=== PATIENT | female | born 1960 | race Caucasian/White ===

== ENCOUNTER → 2017-11-25 12:47 | Outpatient (CLI) | payer OTHER, SELFPAY ==
--- NOTE | 2017-11-26 08:30 | LEAS ---
Arterial Study - Arterial Study Arterial Study: Date of scan 11/25/[address] Robertson Interpretation: Right lower extremity triphasic flow noted at the ankle with an MARK 1.05 the PT 1.0 the DP. Left lower extremity with triphasic flow the PT with an MARK 1.03 and biphasic flow at the DP with an MARK 0.92. Impression: 1. Bilateral lower extremities with triphasic flow noted at the ankle with an MARK 1.05 on the right 1.03 on the left
== END ==
PROVIDERS: Visit Provider Surgery Vascular Surgery
DX: I74.09 Other arterial embolism and thrombosis of abdominal aorta (principal); M79.604 Pain in right leg; R09.89 Other specified symptoms and signs involving the circulatory and respiratory systems; I70.213 Atherosclerosis of native arteries of extremities with intermittent claudication, bilateral legs; I74.9 Embolism and thrombosis of unspecified artery; M79.605 Pain in left leg; M19.90 Unspecified osteoarthritis, unspecified site; F17.200 Nicotine dependence, unspecified, uncomplicated
CPT/HCPCS: 93880; 93922

== ENCOUNTER → 2017-11-26 08:52 | Outpatient (CLI) | payer OTHER, SELFPAY | PROVIDERS: Visit Provider Surgery Vascular Surgery | DX: I74.09 Other arterial embolism and thrombosis of abdominal aorta (principal); M79.604 Pain in right leg; R09.89 Other specified symptoms and signs involving the circulatory and respiratory systems; I70.213 Atherosclerosis of native arteries of extremities with intermittent claudication, bilateral legs; I74.9 Embolism and thrombosis of unspecified artery; M79.605 Pain in left leg; M19.90 Unspecified osteoarthritis, unspecified site; F17.200 Nicotine dependence, unspecified, uncomplicated | CPT/HCPCS: 93978 ==

== ENCOUNTER → 2018-10-27 09:10 | Outpatient (CLI) | payer OTHER, SELFPAY ==
[2018-10-22 10:34] VITALS: BMI 27.8
[2018-10-27 10:20] LABS: AST(SGOT) 19 U/L (15-37); Alanine Aminotransfer ALT/SGPT 35 U/L (13-56); Albumin, Serum 3.8 g/dL (3.2-5.0); Alkaline Phosphatase 90 U/L (45-117); Bilirubin, Direct 0.13 mg/dL (0.00-0.30); Cholesterol 130 mg/dL (200); Globulin 3.5 g/dL (2.2-4.2); High Density Lipoprotein 51 mg/dL; Protein, Total 7.3 g/dL (6.4-8.2); Triglycerides 155 mg/dL; Very Low Density Lipoprotein 31 mg/dL (5-40)
== END ==
PROVIDERS: Referring Provider Internal Medicine Cardiovascular Disease; Visit Provider Internal Medicine Cardiovascular Disease
DX: I70.90 Unspecified atherosclerosis (principal); E78.5 Hyperlipidemia, unspecified
CPT/HCPCS: 36415; 80061; 80076

== ENCOUNTER → 2018-11-05 14:56 | Outpatient (CLI) | payer OTHER, SELFPAY ==
[2018-10-22 10:34] VITALS: BMI 27.8
--- NOTE | 2018-11-05 14:58 | ECHOD_ITS ---
Reason For Study: DYSPNEA Procedure This was a 2D Doppler, Color Flow transthoracic echocardiogram. Exam performed in department. Left Ventricle Normal size and thickness. The estimated ejection fraction is 65 %. Stage 1 diastolic dysfunction. No regional wall motion abnormalities noted. Right Ventricle Normal size and thickness. Normal systolic function. Atria Normal left atrium. Normal right atrium. Normal atrial septum. Mitral Valve The mitral valve is structurally normal. No prolapse or stenosis seen. Tricuspid Valve Normal tricuspid valve. Trivial tricuspid valve insufficiency. Right ventricular systolic pressure estimated to be 17 mmHg. Aortic Valve Normal aortic valve. Trisinus/trileaflet aortic valve. Pulmonic Valve Normal pulmonic valve. Trivial eccentric pulmonic valve insufficiency. Great Vessels Normal aortic root. Normal arch. Normal inferior vena cava. Inferior vena cava collapse with sniff. Pericardium/Pleural No pericardial effusion. MMode/2D Measurements & Calculations LVIDd: 4.4 cm IVSd: 0.96 cm Ao root diam: 2.6 cm LVIDs: 2.5 cm LVPWd: 0.92 cm FS: 43.3 % LAV(MOD-bp): 43.4 ml LA A4 area: 16.3 cm2 LA dimension(2D): 3.5 cm LAV(MOD-bp) Indexed: 25.6 ml/m2 LAV(MOD-sp2): 38.7 ml LAV(MOD-sp4): 42.2 ml RA A4 area: 11.8 cm2 Time Measurements MV dec time: 0.23 sec Doppler Measurements & Calculations MV E max rafa: 74.4 cm/sec Lat Peak E' Rafa: 7.5 cm/sec Med Peak E' Rafa: 6.3 cm/sec MV A max rafa: 89.5 cm/sec E/E' lat: 9.9 E/E' med: 11.9 MV E/A: 0.83 Ao V2 max: 125.2 cm/sec LV V1 max: 103.2 cm/sec PA V2 max: 106.0 cm/sec Ao max P.3 mmHg LV V1 max P.3 mmHg TR max rafa: 175.8 cm/sec TR max P.4 mmHg Interpretation Summary The estimated ejection fraction is 65 %. Stage 1 diastolic dysfunction. Trivial tricuspid valve insufficiency. Right ventricular systolic pressure estimated to be 17 mmHg. Compared to echo report dated 03/30/13, no appreciable changes noted. Ordering Physician: Dmitry Dixon Referring Physician: Dmitry Dixon Performed By: Eda Novak RDCS, RVT
== END ==
PROVIDERS: Referring Provider Internal Medicine Cardiovascular Disease; Visit Provider Internal Medicine Cardiovascular Disease
DX: I70.90 Unspecified atherosclerosis (principal); E78.5 Hyperlipidemia, unspecified; I73.9 Peripheral vascular disease, unspecified; I10 Essential (primary) hypertension; R06.00 Dyspnea, unspecified; R06.02 Shortness of breath
CPT/HCPCS: 93306

== ENCOUNTER → 2018-11-11 13:25 | Outpatient (CLI) | payer OTHER, SELFPAY ==
[2018-10-22 10:34] VITALS: BMI 27.8
--- NOTE | 2018-11-11 13:27 | STEWCON_ITS ---
Reason For Study: DYSPNEA/SOB Stress Results Protocol: Bong Protocol WITH DEFINITY Maximum Predicted HR: 162 bpm Target HR: 138 bpm % Maximum Predicted HR: 90 % DurationHeart Rate Stage (mm:ss) (bpm) BP Comment BASELINE 67 140/90 STAGE 1 3:00 115 182/80 STAGE 2 3:00 13 210/100 STAGE3 2:30 146 220/92 2 CC DEFINITY RECOVERY 88 142/92 Stress Duration: 8:30 mm:ss Maximum Stress HR: 146 bpm Baseline Echocardiogram Findings The estimated ejection fraction is 65 %. Stress Echo Wall motion Data Resting WM Intermediate WM Stress WM Resting Wall Motion Wall Motion Stress No regional wall motion No regional wall motion abnormalities noted. abnormalities noted. EKG Data The baseline ECG displays normal sinus rhythm. The patient exercised according to the regular Bong protocol for a total duration of 8:30. The maximum heart rate attained was 151 beats per minute. This was 93% of maximum predicted heart rate. The patient exercised into stage 3 of the Bong protocol. During stress, there were no ST or T wave changes noted to suggest ischemia. No clinical angina was noted. Interpretation Summary The estimated ejection fraction is 65 %. Normal, adequate, treadmill echocardiogram. Negative for ischemia by EKG and echocardiographic criteria. No anginal symptoms noted. Rare PVCs noted. Hypertensive blood pressure response to exercise. Test terminated due to dyspnea. Decreased sensitivity due to poor echo windows requiring Definity agent. Final LVEF is 75%. No complications. The study was technically difficult. Contrast injection was performed. Ordering Physician: Dmitry Dixon Referring Physician: Dmitry Dixon Performed By: Nichol Maravilla, DEL, RVT
== END ==
PROVIDERS: Referring Provider Internal Medicine Cardiovascular Disease; Visit Provider Internal Medicine Cardiovascular Disease
DX: I70.90 Unspecified atherosclerosis (principal); R09.89 Other specified symptoms and signs involving the circulatory and respiratory systems; E78.5 Hyperlipidemia, unspecified; I10 Essential (primary) hypertension; R06.09 Other forms of dyspnea; R06.02 Shortness of breath
CPT/HCPCS: 93017; 93350; Q9957; A4216; C8928

== ENCOUNTER → 2019-01-20 07:58 | Outpatient (CLI) | payer OTHER, SELFPAY ==
[2018-10-22 10:34] VITALS: BMI 27.8
--- NOTE | 2019-01-20 08:00 | ART_ITS ---
Reason For Study: Atherosclerosis Procedure A bilateral lower extremity continuous wave Doppler with analog waveform analysis and ankle brachial indexes. Left Segmental Pressures Left brachial= 160mmHg. Left posterior tibial artery = 195mmHg. Left dorsalis pedis artery = 186mmHg. The left posterior tibial artery waveforms are triphasic. The left dorsalis pedis waveforms are biphasic. Right Segmental Pressures Right brachial= 171mmHg. Right posterior tibial artery = 173mmHg. Right dorsalis pedis artery = 196mmHg. The right posterior tibial artery waveforms are biphasic. The right dorsalis pedis waveforms are biphasic. Indices The right ankle brachial index by the posterior tibial artery is 1.01. The right ankle brachial index by the dorsalis pedis is 1.15. The left ankle brachial index by the posterior tibial artery is 1.14. The left ankle brachial index by the dorsalis pedis is 1.09. Interpretation Summary 1. Bilaterl no significant occlussive disease at rest with MARK 1.15/1.14. Ordering Physician: Benjy Robertson Referring Physician: Benjy Robertson Performed By: Gabriella Fulton RDCS/RVT
--- NOTE | 2019-01-20 08:00 | CDU_ITS ---
Reason For Study: Bruit Rt. Velocities/BP Lt. Velocities/BP Prox CCA 90/30 cm/sec. Prox CCA 83/29 cm/sec. Mid CCA 93/33 cm/sec. Mid CCA 91/29 cm/sec. Dist CCA 81/24 cm/sec. Dist CCA 73/24 cm/sec. Prox ICA 100/33 cm/sec. Prox ICA 63/27 cm/sec. Mid ICA 145/44 cm/sec. Mid ICA 90/35 cm/sec. Dist ICA 149/52 cm/sec. Dist ICA 118/47 cm/sec. Rt. ICA/CCA = 1.6. Lt. ICA/CCA = 1.3. Prox ECA 109/20 cm/sec. Prox ECA 70/11 cm/sec. Rt. Vert. 47/16 cm/sec. Lt. Vert. 60/22 cm/sec. Right Extracranial There is heterogeneous, irregular atherosclerotic plaque noted in the right common carotid artery. There is heterogeneous, irregular atherosclerotic plaque noted in the right internal carotid artery. There is intimal thickening but no significant atherosclerotic plaque noted in the right external carotid artery. Antegrade flow is noted in the right vertebral artery. Left Extracranial There is intimal thickening but no significant atherosclerotic plaque noted in the left common carotid artery. There is heterogeneous, irregular atherosclerotic plaque noted in the left internal carotid artery. There is heterogeneous, irregular atherosclerotic plaque noted in the left external carotid artery. Antegrade flow is noted in the left vertebral artery. Procedure Carotid Duplex [id number]. Exam performed in department. Interpretation Summary Moderate (50-69%) stenosis right extracranial internal carotid. Mild (<50%) stenosis left extracranial internal carotid. Flow within the vertebral arteries is antegrade bilaterally. Ordering Physician: Benjy Robertson Referring Physician: Benjy Robertson Performed By: Gabriella Fulton, DEL, RVT
--- NOTE | 2019-01-20 08:00 | AAVD_ITS ---
Reason For Study: Atherosclerosis Aorta Measurements Aorta Doppler Measurements Proximal aorta measures2.01cm x 2.05cm. in cross- Peak systolic flow velocities within the proximal sectional axis. aorta measure 54 cm/sec. Proximal aorta measures1.98cm. in longitudinal Peak systolic flow velocities within the mid aorta axis. measure 59 cm/sec. Mid aorta measures1.42cm x 1.46cm. in cross- Peak systolic flow velocities within the distal sectional axis. aorta measure 118 cm/sec. Mid aorta measures1.38cm. in longitudinal axis. Aorta prox stent: 89 cm/s Distal aorta measures1.11cm x 1.17cm. in cross- Aorta mid stent: 93 cm/s sectional axis. Aorta distal stent: 118 cm/s. Distal aorta measures1.04cm. in longitudinal axis. Left Iliac Artery Left iliac artery measures 0.71cm x 0.76 cm. in the cross-sectional axis. Left iliac artery measures 0.64 cm. in the longitudinal axis. Peak systolic velocity in the left iliac artery measures 223 cm/sec. Right Iliac Artery Right iliac artery measures 0.73cm x 0.71 cm. in the cross-sectional axis. Right iliac artery measures 0.68 cm. in the longitudinal axis. Peak systolic velocity in the right iliac artery measures 174 cm/sec. Procedure Aorta IVC Iliac vasculature or bypass grafts [id number]. Exam performed in department. Interpretation Summary 1. Aortoiliac with no significant stenosis. Ordering Physician: Benjy Robertson Referring Physician: Benjy Robertson Performed By: Gabriella Fulton RDCS, RVT
== END ==
PROVIDERS: Referring Provider Surgery Vascular Surgery; Visit Provider Surgery Vascular Surgery
DX: I74.09 Other arterial embolism and thrombosis of abdominal aorta (principal); M79.604 Pain in right leg; R09.89 Other specified symptoms and signs involving the circulatory and respiratory systems; I70.213 Atherosclerosis of native arteries of extremities with intermittent claudication, bilateral legs; I74.9 Embolism and thrombosis of unspecified artery; M79.605 Pain in left leg; M19.90 Unspecified osteoarthritis, unspecified site; Z87.891 Personal history of nicotine dependence
CPT/HCPCS: 93880; 93922; 93978

== ENCOUNTER → 2019-11-25 08:46 | Outpatient (CLI) | payer OTHER, SELFPAY ==
[2019-11-23 09:19] VITALS: BMI 27.2
[2019-11-25 09:40] LABS: AST(SGOT) 17 U/L (15-37); Alanine Aminotransfer ALT/SGPT 32 U/L (13-56); Alkaline Phosphatase 88 U/L (45-117); Bilirubin, Direct 0.17 mg/dL (0.00-0.30); Cholesterol 137 mg/dL (200); Globulin 3.3 g/dL (2.2-4.2); High Density Lipoprotein 62 mg/dL; Protein, Total 7.3 g/dL (6.4-8.2); Triglycerides 68 mg/dL; Very Low Density Lipoprotein 14 mg/dL (5-40)
== END ==
PROVIDERS: Referring Provider Internal Medicine Cardiovascular Disease; Visit Provider Internal Medicine Cardiovascular Disease
DX: E78.5 Hyperlipidemia, unspecified (principal); I70.90 Unspecified atherosclerosis
CPT/HCPCS: 36415; 80061; 80076

== ENCOUNTER → 2020-02-16 08:01 | Outpatient (CLI) | payer OTHER, SELFPAY ==
[2019-11-23 09:19] VITALS: BMI 27.2
--- NOTE | 2020-02-16 08:03 | CDU_ITS ---
Reason For Study: Carotid stenosis Rt. Velocities/BP Lt. Velocities/BP Prox CCA 91.7/23.9 cm/sec. Prox CCA 91.5/26.7 cm/sec. Mid CCA 91.7/29.1 cm/sec. Mid CCA 88.2/28.9 cm/sec. Dist CCA 71.7/22.3 cm/sec. Dist CCA 81.6/28.9 cm/sec. Prox ICA 94.8/30 cm/sec. Prox ICA 77.2/23.4 cm/sec. Mid ICA 137.5/42.6 cm/sec. Mid ICA 79/29.8 cm/sec. Dist ICA 117.4/33.4 cm/sec. Dist ICA 128.4/37.1 cm/sec. Rt. ICA/CCA = 1.5. Lt. ICA/CCA = 1.5. Prox ECA 91.5/17.9 cm/sec. Prox ECA 82.8/14.6 cm/sec. Rt. Vert. 34.3/10.7 cm/sec. Lt. Vert. 55.3/16.8 cm/sec. Right Extracranial There is homogeneous, smooth atherosclerotic plaque noted in the right common carotid artery. There is heterogeneous, irregular atherosclerotic plaque noted in the right internal carotid artery. There is homogeneous, smooth atherosclerotic plaque noted in the right external carotid artery. Antegrade flow is noted in the right vertebral artery. Left Extracranial There is homogeneous, smooth atherosclerotic plaque noted in the left common carotid artery. There is heterogeneous, irregular atherosclerotic plaque noted in the left internal carotid artery. There is intimal thickening but no significant atherosclerotic plaque noted in the left external carotid artery. Antegrade flow is noted in the left vertebral artery. Procedure Carotid Duplex [id number]. This is a Carotid Duplex examination using B-mode, color flow and specral Doppler. Exam performed in department. Interpretation Summary Moderate (50-69%) stenosis right extracranial internal carotid. Mild (<50%) stenosis left extracranial internal carotid. Flow within the vertebral arteries is antegrade bilaterally. Ordering Physician: Benjy Robertson Performed By: Roberta Hankins RVT
--- NOTE | 2020-02-16 08:03 | AAVD_ITS ---
Reason For Study: Atherosclerosis Aorta Measurements Aorta Doppler Measurements Proximal aorta measures1.35 x 1.32cm. in cross- Peak systolic flow velocities within the proximal sectional axis. aorta measure 74.4 cm/sec. Proximal aorta measures1.31cm. in longitudinal Peak systolic flow velocities within the mid aorta axis. measure 103.4 cm/sec. Mid aorta measures1.05 x 1.02cm. in cross- Peak systolic flow velocities within the distal sectional axis. aorta measure 180.4 cm/sec. Mid aorta measures1.02cm. in longitudinal axis. Stent noted throughout the mid-distal aorta. Distal aorta measures0.98 x 0.98cm. in cross- sectional axis. Distal aorta measures0.98cm. in longitudinal axis. Left Iliac Artery Left iliac artery measures 0.44 x 0.45 cm. in the cross-sectional axis. Left iliac artery measures 0.59 cm. in the longitudinal axis. Peak systolic velocity in the left iliac artery measures 185.6 cm/sec. Stent noted in left iliac artery. Right Iliac Artery Right iliac artery measures 0.58 x 0.55 cm. in the cross-sectional axis. Right iliac artery measures 0.56 cm. in the longitudinal axis. Peak systolic velocity in the right iliac artery measures 198.5 cm/sec. Stent noted in right iliac artery. Procedure Aorta IVC Iliac vasculature or bypass grafts [id number]. Exam performed in department. Interpretation Summary No significant aortoiliac occlussive disease. Ordering Physician: Benjy Robertson Performed By: Roberta Hankins RVT
--- NOTE | 2020-02-16 08:03 | ART_ITS ---
Reason For Study: Atherosclerosis Procedure A bilateral lower extremity continuous wave Doppler with analog waveform analysis and ankle brachial indexes. Left Segmental Pressures Left brachial= 158mmHg. Left posterior tibial artery = 144mmHg. Left dorsalis pedis artery = 132mmHg. Left digit = 120 mmHg. The left dorsalis pedis waveforms are triphasic. The left posterior tibial artery waveforms are triphasic. Right Segmental Pressures Right brachial= 151mmHg. Right posterior tibial artery = 168mmHg. Right dorsalis pedis artery = 154mmHg. Right digit = 109 mmHg. The right dorsalis pedis waveforms are triphasic. The right posterior tibial artery waveforms are biphasic. Indices The right ankle brachial index by the dorsalis pedis is 0.97. The right ankle brachial index by the posterior tibial artery is 1.06. The right digital-brachial index is 0.69. The left ankle brachial index by the dorsalis pedis is 0.84. The left ankle brachial index by the posterior tibial artery is 0.91. The left digital-brachial index is 0.76. Interpretation Summary No significant occlussive disease at rest with bilateral triphasic flow and MARK 1.06 and 0.91. Ordering Physician: Benjy Robertson Performed By: Roberta Hankins RVT
== END ==
PROVIDERS: Referring Provider Surgery Vascular Surgery; Visit Provider Surgery Vascular Surgery
DX: I65.23 Occlusion and stenosis of bilateral carotid arteries (principal); I70.213 Atherosclerosis of native arteries of extremities with intermittent claudication, bilateral legs; I74.9 Embolism and thrombosis of unspecified artery; I74.09 Other arterial embolism and thrombosis of abdominal aorta; F17.200 Nicotine dependence, unspecified, uncomplicated
CPT/HCPCS: 93880; 93922; 93978

== ENCOUNTER → 2020-05-23 15:29 | Outpatient (CLI) | payer OTHER, SELFPAY ==
[2020-05-23 14:40] VITALS: BMI 27.1
[2020-05-23 16:22] LABS: Absolute Lymphocyte Count 2.03 X10^3/uL (0.83-4.51); Basophil# 0.02 X10^3/uL; Basophil% 0.3 % (0-1); Eosinophil# 0.22 X10^3/uL; Eosinophils% 3.3 % (0-5); Hematocrit 43.7 % (37-47); Hemoglobin 13.5 g/dL (12.0-15.0); Lymphocyte # 2.03 X10^3/ul (4.0); Lymphocyte % 30.1 % (19-41); Mean Corp Hgb Conc 30.9 g/dL (32-36); Mean Corpuscular Hgb 30.3 pg (27.0-32.0); Mean Platelet Vol. 10.1 fl (6.2-12.0); Monocyte# 0.43 X10^3/uL; Monocyte% 6.4 % (0-10); NRBC Flagged by Analyzer 0 % (0-5); Neutrophil # 4.03 X10^3/uL (2.7-7.7); Neutrophil % 59.8 % (47-70); Platelet Count 258 K/mm3 (150-450); RBC Distribution Width CV 11.8 % (11.6-14.6); RBC Distribution Width SD 42.8 fl (35.1-43.9); Red Blood Count 4.46 M/mm3 (4.2-5.4); White Blood Count 6.7 K/mm3 (4.4-11.0)
[2020-05-23 16:51] LABS: AST(SGOT) 14 U/L (15-37); Alanine Aminotransfer ALT/SGPT 27 U/L (13-56); Alkaline Phosphatase 93 U/L (45-117); Anion Gap 7 (5-15); BUN 15 mg/dL (7-18); Calcium,Total 8.8 mg/dL (8.5-10.1); Chloride 106 mmol/L (98-107); Creatinine, Serum 0.83 mg/dL (0.55-1.02); EST Glomerular Filtration Rate 74 mL/min (>60); Est Glom Filt Rate - Afr Amer 90 mL/min (>60); Globulin 3.4 g/dL (2.2-4.2); Glucose 86 mg/dL (74-106); Potassium 3.9 mmol/L (3.5-5.1); Protein, Total 7.4 g/dL (6.4-8.2); Sodium Level 141 mmol/L (136-145)
== END ==
PROVIDERS: Referring Provider Physician Assistant Medical; Visit Provider Physician Assistant Medical
DX: E78.00 Pure hypercholesterolemia, unspecified (principal); E78.5 Hyperlipidemia, unspecified; I10 Essential (primary) hypertension; I73.9 Peripheral vascular disease, unspecified
CPT/HCPCS: 36415; 80048; 80076; 85025

== ENCOUNTER 2020-09-19 08:11 | Emergency (ER) | payer OTHER, SELFPAY ==
[2020-05-23 14:40] VITALS: BMI 27.1
[2020-09-19 08:12] VITALS: PULSE 88; RESP 16; TEMP 36.4; O2SAT 95; BMI 25.6
--- NOTE | 2020-09-19 08:17 | EX.ED.GENINJ ---
HPI History of Present Illness Chief Complaint: Laceration Informant: patient Onset/Context/Timing Onset: Today Mechanism/Context: Incised Location of pain/injuries: Left hand (Left index finger) Quality of Pain: Sharp Current Severity: Mild Maximum Severity: Mild Associated Symptoms Associated Symptoms: Negative for Parasthesias, Weakness and Loss of function Narrative Narrative: Patient is a 60-year-old female medical history significant for hyperlipidemia and peripheral vascular disease who presents to the emergency department with finger laceration. 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 She states she did not have her gloves on. She accidentally incised the lateral aspect of the left second digit near the PIP joint. She is stable to move it. She denies any numbness or tingling. Her tetanus was 3 years ago. She is otherwise been in her normal state of health. The patient is right-hand dominant. Tetanus Immunization: <5 years PFSH PFSH Medical History Arterial occlusive disease Carotid bruit Diastolic dysfunction Hyperlipidemia Hypertension Osteoarthritis Peripheral vascular disease Home Medications aspirin 81 mg PO QODAY 07/11/16 [History Last Taken Unknown] clopidogrel 75 mg tablet 75 mg PO DAILY #90 tab 05/18/18 [Rx Last Taken Unknown] simvastatin 40 mg tablet 40 mg PO QHS #90 tab 02/18/20 [Rx Last Taken Unknown] losartan 25 mg tablet 25 mg PO BID #180 tab 07/03/20 [Rx Last Taken Unknown] Allergy/AdvReac Type Severity Reaction Status Date / Time bacitracin Allergy Rash Verified 09/19/20 08:11 latex Allergy Unknown Verified 09/19/20 08:11 Penicillins Allergy Unknown Verified 09/19/20 08:11 FIBER GLASS Allergy Unknown Uncoded 09/19/20 08:11 Family History Grandfather Myocardial infarction Uncle Myocardial infarction, Onset Age: 55 Surgical History Hx of carpal tunnel repair Hx of hemorrhoidectomy S/P insertion of iliac artery stent (~05/17/13) Social History Smoking Status: Former smoker ROS ROS ED Constitutional Constitutional ED: Denies chills or fever(s) Eyes Eyes: Denies blurry vision or change in vision ENT ENT ED: Denies ear pain or sore throat Cardiovascular Cardiovascular: Denies chest pain or palpitations Respiratory/Chest Respiratory/Chest: Denies cough, dyspnea or dyspnea on exertion Gastrointestinal Gastrointestinal: Denies abdominal pain, nausea or vomiting Genitourinary Genitourinary ED: Denies dysuria or urinary frequency Musculoskeletal Musculoskeletal: Denies arthralgias or myalgias Integumentary Denies rash Neurologic Neurologic: Denies headache(s) or paresthesias Psychiatric Psychiatric: Denies anxiety or depression Endocrine Endocrinology: Denies polydipsia or polyuria Allergic/Immunologic Allergic/Immunologic ED: Denies urticaria EXAM Physical Exam Const Vital Signs: 09/19/20 08:12 Temperature 97.6 F L Temperature Source Temporal Pulse Rate 88 Respiratory Rate 16 Pulse Ox 95 Oxygen Delivery Method Room Air Positive well nourished and well developed General Appearance ED: well developed HEENT Reports normocephalic, head/scalp atraumatic and moist mucous membranes atraumatic; Negative for tenderness Eyes PERRL and EOMs intact bilaterally Neck no lymphadenopathy and supple General: Negative for tenderness Chest Wall inspection of chest normal Resp normal respiratory effort and clear to auscultation bilaterally Cardio regular rate, regular rhythm and no murmurs GI normal to inspection, nondistended, normoactive bowel sounds Palpation: Negative for tender, guarding or rebound tenderness present Back/Spine no CVA tenderness Cervical Spine: Negative for cervical spine tenderness Thoracic Spine / Upper Back: Negative for thoracic spinal tenderness Extremity Extremity Narrative: Patient has a 3 cm laceration near the PIP on the left index. It is just distal. Two-point discrimination is preserved. Flexion and extension are preserved. Minimal active bleeding. General Extremety ED: Yes tenderness Neuro oriented x3 and CN's II-XII intact bilaterally Neuro Narrative: No focal deficits appreciated. Sensorium / Orientation: alert Psych mental status grossly normal Skin no rashes or lesions noted, no wounds and skin turgor normal MDM MDM MDM Narrative Medical decision making narrative: Patient presents laceration to the left index finger. It is just distal to the PIP joint. The wound was aggressively irrigated. It was anesthetized with 3 cc of 1% lidocaine without epinephrine. The wound was explored. There was no evidence of tendinous involvement. Flexor profundus and flexor superficialis are intact. Two-point discrimination was preserved. The wound was closed using 7 simple 6-0 interrupted suture. Patient tolerated this without issue. I am going to place her in [facility] splint for the next 2 days. She was counseled on local wound care. She will follow-up with corporate care will be discharged home. Impression 1. 3 cm left index finger laceration with repair Discharge Plan Triage Chief Complaint: Laceration ED Provider: Tl Benavidez Dx/Rx/DC Orders Instructions: ED Laceration, Hand: All Closures Prescriptions: No Action aspirin 81 MG tablet,chewable 81 mg PO QODAY RF: 0 clopidogrel 75 mg tablet 75 mg PO DAILY Qty: 90 RF: 3 simvastatin 40 mg tablet 40 mg PO QHS Qty: 90 RF: 3 losartan [Cozaar] 25 mg tablet 25 mg PO BID Qty: 180 RF: 3 Primary Care Provider: Care Physician,No Primary Referrals: Corporate,Care [GROUP OF PHYSICIANS] - 10 Day for suture removal Care Physician,No Primary [Primary Care Provider] -
--- NOTE | 2020-09-19 08:29 | ED.RN ---
CALLED [facility] IN [place]. 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
[2020-09-19] MEDS: Lidocaine 1% (20 ml mdv) 20 ML Vial INFILT (08:41)
== END 2020-09-19 09:34 | disposition home or self-care (01) ==
LOC: ED 08:31
PROVIDERS: Emergency Provider Emergency Medicine
DX: S61.211A Laceration without foreign body of left index finger without damage to nail, initial encounter (principal); S69.92XA Unspecified injury of left wrist, hand and finger(s), initial encounter; W27.8XXA Contact with other nonpowered hand tool, initial encounter; Y92.89 Other specified places as the place of occurrence of the external cause; Y99.0 Civilian activity done for income or pay; I73.9 Peripheral vascular disease, unspecified; E78.5 Hyperlipidemia, unspecified; I10 Essential (primary) hypertension; Z87.891 Personal history of nicotine dependence; Z79.82 Long term (current) use of aspirin
CPT/HCPCS: 12002; 99284

== ENCOUNTER 2020-10-30 05:28 | Emergency (ER) | payer OTHER, SELFPAY ==
[2020-10-13 08:50] VITALS: BMI 26.3
[2020-10-30 05:28] VITALS: BP 142/80; PULSE 101; RESP 18; TEMP 36.6; O2SAT 97; BMI 26.5
--- NOTE | 2020-10-30 06:04 | ED.VIS.DENTA ---
HPI History of Present Illness Chief Complaint: Dental Informant: patient Onset/Context/Timing Onset: Weeks (1) Context: Gradual Onset Timing: Continuous Quality: Dull, aching, swollen Location: Right upper molars Worsened by: Nothing Relieved by: NSAIDs (Aspirin) Associated Symptoms Assocated Symptom - Dental: face swelling; Negative for fever, cold sensitivity or hot sensitivity Narrative Narrative: Patient presents with dental pain that has been getting worse over the past week. Patient states the pain is over the right upper molar area. Patient states she has been on antibiotics but these have not been helping. Patient denies any fevers or chills. Patient denies any discharge or drainage. Patient denies any difficulty breathing or difficulty swallowing. Patient states she has an appoint with her dentist but is unable to get in there until her swelling improves. PFSH PFSH Medical History Carotid bruit Essential hypertension Hyperlipidemia Laceration of left index finger Osteoarthritis Paresthesia Peripheral vascular occlusive disease Home Medications clopidogrel 75 mg tablet 75 mg PO DAILY #90 tab 05/18/18 [Rx Last Taken Unknown] simvastatin 40 mg tablet 40 mg PO QHS #90 tab 02/18/20 [Rx Last Taken Unknown] aspirin 81 mg chewable tablet 81 mg PO DAILY tab 10/13/20 [History Last Taken Unknown] losartan 50 mg tablet 50 mg PO DAILY #90 tab 10/13/20 [Rx Last Taken Unknown] clindamycin HCl 300 mg PO Q6H 10/30/20 [History Last Taken Unknown] Allergy/AdvReac Type Severity Reaction Status Date / Time bacitracin Allergy Rash Verified 10/30/20 05:32 latex Allergy Unknown Verified 10/30/20 05:32 Penicillins Allergy Unknown Verified 10/30/20 05:32 FIBER GLASS Allergy Unknown Uncoded 10/30/20 05:32 Family History Grandfather Myocardial infarction Uncle Myocardial infarction, Onset Age: 55 Surgical History History of angioplasty of peripheral vessel (05/17/13) Hx of carpal tunnel repair Hx of hemorrhoidectomy Social History Smoking Status: Former smoker ROS ROS ED Constitutional Constitutional ED: Denies chills or fever(s) Eyes Eyes: Denies blurry vision or change in vision ENT ENT ED: Denies rhinorrhea or sore throat Cardiovascular Cardiovascular: Denies chest pain or palpitations Respiratory/Chest Respiratory/Chest: Reports cough; Denies dyspnea Gastrointestinal Gastrointestinal: Reports nausea and vomiting Genitourinary Genitourinary ED: Denies dysuria or hematuria Musculoskeletal Musculoskeletal: Denies back pain or neck pain Integumentary Denies abscess or rash Neurologic Neurologic: Reports headache(s); Denies weakness Allergic/Immunologic Allergic/Immunologic ED: Denies mouth swelling or urticaria EXAM Physical Exam Const Vital Signs: 10/30/20 05:28 Temperature 97.8 F Temperature Source Temporal Pulse Rate 101 H Respiratory Rate 18 Blood Pressure 142/80 H Blood Pressure Mean 100 Pulse Ox 97 Oxygen Delivery Method Room Air Positive well nourished HEENT Mouth ED: Yes oral and palatal mucosa abnormal Mouth: oral and palatal mucosa abnormal Teeth and Gingiva: abnormal tooth and associated gingiva Positive for tenderness, associated gingival edema and associated gingival fluctuance Throat: posterior oropharynx normal Neck no lymphadenopathy, supple and no JVD General: Negative for anterior neck swelling or submandibular swelling Neuro oriented x3, CN's II-XII intact bilaterally, moves all extremities, no focal motor deficits and no sensory deficits noted Sensorium / Orientation: alert Psych mental status grossly normal MDM MDM MDM Narrative Medical decision making narrative: Topical lidocaine was applied to the gingiva. The tender fluctuant area was aspirated and a moderate amount of purulent drainage was expressed. A #15 blade scalpel was then used to make a small incision. There is moderate amount of purulent drainage expressed after this. Patient feels better after this. Patient was instructed to do salt water rinses. Patient was instructed to continue her antibiotics until gone. Patient was instructed to follow-up with her dentist as scheduled. Patient also requested to have COVID-19 vaccine. Patient was advised of the side effects. Patient is agreeable with this. Patient was given a single dose Gene & Gene COVID-19 vaccine. Patient understood and was agreeable with the plan. All questions were answered. Discharge Plan Triage Chief Complaint: Dental ED Provider: Jovani Mayorga Dx/Rx/DC Orders Clinical Impression: Abscess, dental Instructions: ED Dental Abscess Prescriptions: No Action losartan 50 mg tablet 50 mg PO DAILY Qty: 90 RF: 3 aspirin 81 mg tablet,chewable 81 mg PO DAILY RF: 0 clindamycin HCl 300 mg Capsule 300 mg PO Q6H RF: 0 clopidogrel 75 mg tablet 75 mg PO DAILY Qty: 90 RF: 3 simvastatin 40 mg tablet 40 mg PO QHS Qty: 90 RF: 3 Primary Care Provider: Care Physician,No Primary Referrals: Care Physician,No Primary [Primary Care Provider] - Dentist,Your [STAFF PHYSICIAN] - Keep Roxie appointment Disposition Disposition: Home, Self Care
[2020-10-30] MEDS: Lidocaine 2% Jelly 1 APPLIC Tube TOPICAL (06:27)
[2020-10-30] MEDS: COVID-19 VAC,AD26(JANSSEN)/PF 0.5 ML SYRINGE IM (08:43)
[2020-10-30 08:47] VITALS: BP 124/78; PULSE 84; RESP 16; O2SAT 97
== END 2020-10-30 09:11 | disposition home or self-care (01) ==
PROVIDERS: Emergency Provider Emergency Medicine
DX: K04.7 Periapical abscess without sinus (principal); Z23 Encounter for immunization; I10 Essential (primary) hypertension; E78.5 Hyperlipidemia, unspecified; Z87.891 Personal history of nicotine dependence; Z79.82 Long term (current) use of aspirin
CPT/HCPCS: 41800; 64999; 91303; 96372; 99282

== ENCOUNTER → 2020-11-18 08:52 | Outpatient (CLI) | payer OTHER, SELFPAY ==
[2020-11-18 10:05] LABS: AST(SGOT) 13 U/L (15-37); Alanine Aminotransfer ALT/SGPT 24 U/L (13-56); Albumin, Serum 3.7 g/dL (3.2-5.0); Alkaline Phosphatase 81 U/L (45-117); Bilirubin, Direct 0.17 mg/dL (0.00-0.30); Cholesterol 134 mg/dL (200); Globulin 3.1 g/dL (2.2-4.2); High Density Lipoprotein 73 mg/dL; Protein, Total 6.8 g/dL (6.4-8.2); Triglycerides 32 mg/dL; Very Low Density Lipoprotein 6 mg/dL (5-40)
== END ==
PROVIDERS: Referring Provider Internal Medicine Cardiovascular Disease; Visit Provider Internal Medicine Cardiovascular Disease
DX: E78.00 Pure hypercholesterolemia, unspecified (principal)
CPT/HCPCS: 36415; 80061; 80076

== ENCOUNTER → 2021-01-03 17:22 | Outpatient (CLI) | payer OTHER, SELFPAY ==
[2021-01-03 17:42] LABS: Absolute Neutrophil Count 3.7 X10^3/uL (2.0-7.7); Basophil# 0.02 X10^3/uL; Basophil% 0.3 % (0-1); Eosinophil# 0.19 X10^3/uL; Hematocrit 41.4 % (37-47); Hemoglobin 13.1 g/dL (12.0-15.0); Lymphocyte % 31.1 % (19-41); Mean Corp Hgb Conc 31.6 g/dL (32-36); Mean Corpuscular Hgb 30.5 pg (27.0-32.0); Mean Corpuscular Volume 96.3 fL (81-99); Mean Platelet Vol. 9.6 fl (6.2-12.0); Monocyte# 0.47 X10^3/uL; Monocyte% 7.3 % (0-10); NRBC Flagged by Analyzer 0 % (0-5); Neutrophil # 3.73 X10^3/uL (2.7-7.7); Neutrophil % 57.8 % (47-70); Platelet Count 253 K/mm3 (150-450); RBC Distribution Width CV 11.7 % (11.6-14.6); RBC Distribution Width SD 41.2 fl (35.1-43.9); White Blood Count 6.4 K/mm3 (4.4-11.0)
[2021-01-03 18:53] LABS: ALB/GLOB Ratio 1.1 RATIO (0.9-2.4); AST(SGOT) 18 U/L (15-37); Alanine Aminotransfer ALT/SGPT 29 U/L (13-56); Albumin, Serum 3.9 g/dL (3.2-5.0); Alkaline Phosphatase 83 U/L (45-117); Anion Gap 6 (5-15); BUN 16 mg/dL (7-18); BUN/Creat Ratio 19.7 RATIO (10-20); Calcium,Total 8.9 mg/dL (8.5-10.1); Chloride 108 mmol/L (98-107); Creatinine, Serum 0.81 mg/dL (0.55-1.02); EST Glomerular Filtration Rate 76 mL/min (>60); Est Glom Filt Rate - Afr Amer 92 mL/min (>60); Globulin 3.6 g/dL (2.2-4.2); Glucose 90 mg/dL (74-106); Potassium 3.7 mmol/L (3.5-5.1); Protein, Total 7.5 g/dL (6.4-8.2); Sodium Level 141 mmol/L (136-145); Thyroid Stim Hormone (TSH) 4.06 uIU/mL (0.358-3.74)
[2021-01-04 09:28] LABS: Hepatitis C Antibody Non-Reactive (Nonreactive); Vitamin D,25 Hydroxy 23.2 ng/mL
== END ==
PROVIDERS: PCP Family Medicine Geriatric Medicine; Referring Provider Family Medicine Geriatric Medicine; Visit Provider Family Medicine Geriatric Medicine
DX: R53.83 Other fatigue (principal); E55.9 Vitamin D deficiency, unspecified; Z13.89 Encounter for screening for other disorder
CPT/HCPCS: 36415; 80053; 82306; 84443; 85025; 86803

== ENCOUNTER → 2021-03-02 08:57 | Outpatient (CLI) | payer OTHER, SELFPAY ==
--- NOTE | 2021-03-02 09:00 | ART_ITS ---
Reason For Study: Atherosclerosis Procedure A bilateral lower extremity continuous wave Doppler with analog waveform analysis and ankle brachial indexes. Left Segmental Pressures Left brachial= 142mmHg. Left posterior tibial artery = 158mmHg. Left dorsalis pedis artery = 156mmHg. Left digit = 117 mmHg. Right Segmental Pressures Right brachial= 147mmHg. Right posterior tibial artery = 155mmHg. Right dorsalis pedis artery = 159mmHg. Right digit = 127 mmHg. Indices The right ankle brachial index by the posterior tibial artery is 1.05. The right ankle brachial index by the dorsalis pedis is 1.08. The right digital-brachial index is 0.86. The left ankle brachial index by the posterior tibial artery is 1.07. The left ankle brachial index by the dorsalis pedis is 1.06. The left digital-brachial index is 0.80. VL/Ankle Brachial Index Interpretation Summary Right lower extremity with biphasic flow noted but a normal MARK of 1.08. Left l eg with triphasic flow and an MARK 1.07. Normal digit brachial index of 0.86 and 0.8. Ordering Physician: Benjy Robertson Referring Physician: Benjy Robertson Performed By: Gabriella Fulton RDCS/RVT
--- NOTE | 2021-03-02 09:00 | AAVD_ITS ---
Reason For Study: Atherosclerosis Aorta Measurements Aorta Doppler Measurements Proximal aorta measures1.71cm x 1.95cm. in cross- Peak systolic flow velocities within the proximal sectional axis. aorta measure 46 cm/sec. Proximal aorta measures1.81cm. in longitudinal Peak systolic flow velocities within the mid aorta axis. measure 79 cm/sec. Mid aorta measures1.17cm x 1.17cm. in cross- Peak systolic flow velocities within the distal sectional axis. aorta measure 147 cm/sec. Mid aorta measures1.12cm. in longitudinal axis. Distal aorta measures1.10cm x 1.10cm. in cross- sectional axis. Distal aorta measures0.97cm. in longitudinal axis. Stent noted mid-distal Aorta. Left Iliac Artery Left iliac artery measures 0.66cm x 0.70 cm. in the cross-sectional axis. Left iliac artery measures 0.67 cm. in the longitudinal axis. Peak systolic velocity in the left iliac artery measures 203 cm/sec. Stent noted LCIA. Right Iliac Artery Right iliac artery measures 0.68cm x 0.65 cm. in the cross-sectional axis. Right iliac artery measures 0.68 cm. in the longitudinal axis. Peak systolic velocity in the right iliac artery measures 171 cm/sec. Stent noted RCIA. Procedure Aorta IVC Iliac vasculature or bypass grafts 31040. Exam performed in department. VL/Abd Aortic/IVC Duplex scan Interpretation Summary Aorta and bilateral common iliac stents patent with no significant stenosis not ed. Ordering Physician: Benjy Robertson Referring Physician: Eliceo Zarate Chi Performed By: Gabriella Fulton, DEL, RVT
--- NOTE | 2021-03-02 09:01 | CDU_ITS ---
Reason For Study: Carotid Stenosis Rt. Velocities/BP Lt. Velocities/BP Prox CCA 91/26 cm/sec. Prox CCA 104/30 cm/sec. Mid CCA 90/26 cm/sec. Mid CCA 79/25 cm/sec. Dist CCA 80/30 cm/sec. Dist CCA 93/24 cm/sec. Prox ICA 133/25 cm/sec. Prox ICA 88/27 cm/sec. Mid ICA 142/45 cm/sec. Mid ICA 175/47 cm/sec. Dist ICA 114/38 cm/sec. Dist ICA 121/40 cm/sec. Rt. ICA/CCA = 1.6. Lt. ICA/CCA = 2.2. Prox ECA 103/16 cm/sec. Prox ECA 100/18 cm/sec. Rt. Vert. 74/22 cm/sec. Lt. Vert. 88/24 cm/sec. Right Extracranial There is heterogeneous, irregular atherosclerotic plaque noted in the right common carotid artery. There is heterogeneous, irregular atherosclerotic plaque noted in the right internal carotid artery. There is intimal thickening but no significant atherosclerotic plaque noted in the right external carotid artery. Antegrade flow is noted in the right vertebral artery. Left Extracranial There is heterogeneous, irregular atherosclerotic plaque noted in the left common carotid artery. There is heterogeneous, irregular atherosclerotic plaque noted in the left internal carotid artery. There is intimal thickening but no significant atherosclerotic plaque noted in the left external carotid artery. Antegrade flow is noted in the left vertebral artery. Procedure Carotid Duplex 46629. This is a Carotid Duplex examination using B-mode, color flow and specral Doppler. Exam performed in department. VL/Carotid Duplex Ultrasound Interpretation Summary Moderate (50-69%) stenosis right extracranial internal carotid. Moderate (50-69 %) stenosis left extracranial internal carotid. Flow within the vertebral arteries is antegrade bilaterally. Ordering Physician: Benjy Robertson Referring Physician: Eliceo Zarate Chi Performed By: Gabriella Fulton, DEL, RVT
== END ==
PROVIDERS: PCP Family Medicine Geriatric Medicine; Referring Provider Surgery Vascular Surgery; Visit Provider Surgery Vascular Surgery
DX: I65.23 Occlusion and stenosis of bilateral carotid arteries (principal); I70.213 Atherosclerosis of native arteries of extremities with intermittent claudication, bilateral legs; I74.9 Embolism and thrombosis of unspecified artery; I74.09 Other arterial embolism and thrombosis of abdominal aorta; F17.200 Nicotine dependence, unspecified, uncomplicated
CPT/HCPCS: 93880; 93922; 93978

== ENCOUNTER 2021-04-12 13:37 | Outpatient (CLI) | payer OTHER, SELFPAY ==
[2021-04-12 16:32] LABS: Absolute Lymphocyte Count 2.18 X10^3/uL (0.83-4.51); Absolute Neutrophil Count 4.6 X10^3/uL (2.0-7.7); Basophil# 0.03 X10^3/uL; Basophil% 0.4 % (0-1); Eosinophil# 0.24 X10^3/uL; Eosinophils% 3.2 % (0-5); Hematocrit 38.5 % (37-47); Hemoglobin 12.4 g/dL (12.0-15.0); Lymphocyte # 2.18 X10^3/ul (0.83-4.51); Lymphocyte % 28.7 % (19-41); Mean Corp Hgb Conc 32.2 g/dL (32-36); Mean Corpuscular Hgb 30.5 pg (27.0-32.0); Mean Corpuscular Volume 94.8 fL (81-99); Mean Platelet Vol. 9.7 fl (6.2-12.0); Monocyte# 0.56 X10^3/uL; Monocyte% 7.4 % (0-10); NRBC Flagged by Analyzer 0 % (0-5); Neutrophil # 4.56 X10^3/uL (2.7-7.7); Platelet Count 315 K/mm3 (150-450); RBC Distribution Width CV 11.9 % (11.6-14.6); RBC Distribution Width SD 41.6 fl (35.1-43.9); Red Blood Count 4.06 M/mm3 (4.2-5.4); White Blood Count 7.6 K/mm3 (4.4-11.0)
[2021-04-12 16:59] LABS: Vitamin D,25 Hydroxy 18.1 ng/mL
[2021-04-12 17:05] LABS: ALB/GLOB Ratio 1.1 RATIO (0.9-2.4); AST(SGOT) 19 U/L (15-37); Alanine Aminotransfer ALT/SGPT 36 U/L (13-56); Albumin, Serum 3.9 g/dL (3.2-5.0); Alkaline Phosphatase 83 U/L (45-117); Anion Gap 7 (5-15); BUN 17 mg/dL (7-18); BUN/Creat Ratio 22.9 RATIO (10-20); Calcium,Total 8.8 mg/dL (8.5-10.1); Chloride 108 mmol/L (98-107); Creatinine, Serum 0.74 mg/dL (0.55-1.02); EST Glomerular Filtration Rate 85 mL/min (>60); Est Glom Filt Rate - Afr Amer 102 mL/min (>60); Globulin 3.4 g/dL (2.2-4.2); Glucose 92 mg/dL (74-106); Protein, Total 7.3 g/dL (6.4-8.2); Sodium Level 142 mmol/L (136-145); Thyroid Stim Hormone (TSH) 4.83 uIU/mL (0.358-3.74)
== END 2021-04-12 23:59 | disposition short-term general hospital (02) ==
LOC: POLAB3 13:38
PROVIDERS: PCP Family Medicine Geriatric Medicine; Visit Provider Family Medicine Geriatric Medicine
DX: E55.9 Vitamin D deficiency, unspecified (principal); I10 Essential (primary) hypertension
CPT/HCPCS: 36415; 80053; 82306; 84443; 85025

== ENCOUNTER 2021-06-04 15:26 | Outpatient (CLI) | payer OTHER, SELFPAY ==
[2021-06-04 17:48] LABS: Thyroid Stim Hormone (TSH) 6.08 uIU/mL (0.358-3.74)
== END 2021-06-04 23:59 | disposition home or self-care (01) ==
LOC: LAB 15:28
PROVIDERS: PCP Family Medicine Geriatric Medicine; Referring Provider Family Medicine Geriatric Medicine; Visit Provider Family Medicine Geriatric Medicine
DX: E03.9 Hypothyroidism, unspecified (principal)
CPT/HCPCS: 36415; 84443

== ENCOUNTER → 2021-10-16 | Outpatient (CLI) | payer OTHER, SELFPAY | END | disposition home or self-care (01) | LOC: LAB 10:50 | PROVIDERS: PCP Family Medicine Geriatric Medicine; Referring Provider Family Medicine Geriatric Medicine; Visit Provider Family Medicine Geriatric Medicine | DX: E03.9 Hypothyroidism, unspecified (principal) | CPT/HCPCS: 36415; 84443 ==

== ENCOUNTER → 2021-10-22 | Outpatient (CLI) | payer OTHER, SELFPAY ==
--- NOTE | 2021-10-22 09:50 | STRESSREP ---
Stress Test Report Exercise myocardial perfusion stress test. 61-year-old lady with a history of chest pain. Stress protocol: Resting EKG demonstrates normal sinus rhythm with a rate of 60 bpm. Resting blood pressure is 138/74 mmHg. The patient exercised according to the regular Bong protocol for total duration of 8 minutes. The patient completed 2 minutes into stage III of the Bong protocol. The maximum heart rate was 148 bpm which was 93% of max impacted heart rate the maximum workload was 10.1 metabolic equivalents. At rest there were no ST or T wave changes noted to suggest ischemia at peak exercise upsloping ST changes only were noted which did not meet the criteria for ischemia. During recovery there was some downsloping and flattening T waves noted in leads II, III and aVF at approximately 3-1/2 minutes. The above is not suggestive of ischemia. No chest pain was noted. The peak blood pressure was 172/60 mmHg. Myocardial perfusion protocol. 11.6 mCi of technetium 99m sestamibi was injected at rest. The patient exercised according to regular Bong protocol for 8 minutes and at peak exercise 33.3 mCi of technetium 99m sestamibi was injected stress images were obtained stress and rest images were reconstructed in comparing the short axis vertical long and horizontal long axis. Gated images were also obtained. Perfusion SPECT analysis: Review of the stress images demonstrate normal uptake of tracer noted in all areas of the myocardium. The resting images similar demonstrate normal uptake of tracer noted in all areas of the myocardium. No reversibility is noted suggest ischemia and no previous infarct is noted. Gated SPECT analysis: The gated ejection fraction is 69%. Conclusion: Normal exercise myocardial perfusion stress test at a high workload. Good functional aerobic capacity. Preserved ejection fraction.
== END | disposition home or self-care (01) ==
LOC: CVS 07:00
PROVIDERS: PCP Family Medicine Geriatric Medicine; Referring Provider Physician Assistant Medical; Visit Provider Physician Assistant Medical
DX: I10 Essential (primary) hypertension (principal); I73.9 Peripheral vascular disease, unspecified
CPT/HCPCS: 78452; 93017; A9500; A4216

== ENCOUNTER → 2021-11-19 | Outpatient (CLI) | payer OTHER, SELFPAY ==
--- NOTE | 2021-11-19 13:53 | RAD_ITS ---
EXAM: XR LEFT WRIST COMPLETE, 3 OR MORE VIEWS CLINICAL INDICATION: PAIN IN L WRIST TECHNIQUE: Frontal, lateral and oblique views of the left wrist. This report was created using Cream[employer]HR report generation technology. COMPARISON: None. FINDINGS: BONES/JOINTS: Unremarkable. No acute fracture. No subluxation. Normal alignment. Preservation of the joint space. No sclerotic or destructive changes observed. SOFT TISSUES: Unremarkable. No soft tissue swelling or gas. No radiopaque foreign body. RAD/Wrist min 3 Views IMPRESSION: Negative left wrist x-rays. Electronically Signed: Rah Eid MD at 2:42 EDT ,
== END | disposition home or self-care (01) ==
PROVIDERS: PCP Family Medicine Geriatric Medicine; Referring Provider Family Medicine Geriatric Medicine; Visit Provider Family Medicine Geriatric Medicine
DX: M25.532 Pain in left wrist (principal)
CPT/HCPCS: 73110

== ENCOUNTER → 2022-01-10 | Outpatient (CLI) | payer OTHER, SELFPAY ==
[2022-01-10 16:48] LABS: Absolute Neutrophil Count 5.1 X10^3/uL (2.0-7.7); Basophil# 0.03 X10^3/uL; Basophil% 0.4 % (0-1); Eosinophils% 1.3 % (0-5); Hematocrit 41.6 % (37-47); Hemoglobin 13.7 g/dL (12.0-15.0); Lymphocyte % 26.6 % (19-41); Mean Corp Hgb Conc 32.9 g/dL (32-36); Mean Corpuscular Hgb 31.2 pg (27.0-32.0); Mean Corpuscular Volume 94.8 fL (81-99); Mean Platelet Vol. 10.7 fl (6.2-12.0); Monocyte# 0.58 X10^3/uL; Monocyte% 7.4 % (0-10); NRBC Flagged by Analyzer 0 % (0-5); Neutrophil # 5.05 X10^3/uL (2.7-7.7); Neutrophil % 63.9 % (47-70); Platelet Count 296 K/mm3 (150-450); RBC Distribution Width CV 11.9 % (11.6-14.6); RBC Distribution Width SD 41.6 fl (35.1-43.9); Red Blood Count 4.39 M/mm3 (4.2-5.4); White Blood Count 7.9 K/mm3 (4.4-11.0)
[2022-01-10 17:13] LABS: ALB/GLOB Ratio 1.2 RATIO (0.9-2.4); AST(SGOT) 22 U/L (15-37); Alanine Aminotransfer ALT/SGPT 36 U/L (13-56); Albumin, Serum 4.1 g/dL (3.2-5.0); Alkaline Phosphatase 81 U/L (45-117); Anion Gap 7 (5-15); BUN 15 mg/dL (7-18); BUN/Creat Ratio 18.3 RATIO (10-20); Calcium,Total 9.1 mg/dL (8.5-10.1); Chloride 109 mmol/L (98-107); Creatinine, Serum 0.82 mg/dL (0.55-1.02); EST Glomerular Filtration Rate 75 mL/min (>60); Est Glom Filt Rate - Afr Amer 91 mL/min (>60); Globulin 3.4 g/dL (2.2-4.2); Glucose 102 mg/dL (74-106); Potassium 3.9 mmol/L (3.5-5.1); Protein, Total 7.5 g/dL (6.4-8.2); Sodium Level 141 mmol/L (136-145); Thyroid Stim Hormone (TSH) 1.34 uIU/mL (0.358-3.74)
== END | disposition home or self-care (01) ==
LOC: POLAB3 09:40
PROVIDERS: PCP Family Medicine Geriatric Medicine; Visit Provider Family Medicine Geriatric Medicine
DX: I10 Essential (primary) hypertension (principal)
CPT/HCPCS: 36415; 80053; 84443; 85025

== ENCOUNTER 2022-01-17 12:58 | Emergency (ER) | payer OTHER, SELFPAY ==
[2022-01-17 12:59] VITALS: BP 127/84; PULSE 89; RESP 16; TEMP 36.6; O2SAT 97; BMI 26.4
--- NOTE | 2022-01-17 13:15 | CT_ITS ---
HISTORY: HEAD TRAUMA. TECHNIQUE: Multiple axial images were obtained of the head without intravenous contrast. A radiation dose optimization technique was used for this scan. 245 images. COMPARISON: None. FINDINGS: BRAIN PARENCHYMA: No significant attenuation abnormality. No acute intra-axial hemorrhage. CSF SPACES: Cerebral ventricles, cortical sulci, and other extra-axial CSF spaces within normal limits in size for patient''s age. No midline shift or other significant mass effect. No acute extra-axial hemorrhage. OTHER: Intact calvarium. No significant air fluid levels in the paranasal sinuses or mastoid air cells. Unremarkable orbital contents. CT/Brain/Head without Contrast IMPRESSION: No acute intracranial process identified. Electronically Signed: Kaleigh Coughlin MD at 13:49 EDT ,
--- NOTE | 2022-01-17 13:15 | EDS_ITS ---
HPI History of Present Illness Chief Complaint: Headache Detail of Chief Complaint: Post fall with head trauma about 3 weeks ago. Informant: patient Onset/Context/Timing Onset: Weeks Context: Sudden Timing: Intermittent Current Severity: Moderate Maximum Severity: Moderate Associated Symptoms/Injury Associated Symptoms: Negative for Fever, Nausea, Vomiting, Sore Throat, Sinus Pressure, Numbness, Tingling, Preceding Aura, Visual Changes, Blurred Vision or Visual Loss Injury - CRENSHAW: Positive for Direct Trauma and Fall; Negative for Assault Narrative Narrative: 61-year-old female history of peripheral vascular disease with 3 stents. She previously was on Plavix and aspirin. They have since DC'd the Plavix but she is still on aspirin. 3 weeks ago she fell striking a table with her head. No LOC. But since that time she has had intermittent headaches. Photophobia. No vomiting. No trouble using her arms or legs. Denies other injuries. She is concerned because of the continued headache and she was on Plavix and was taken off of the the day before the fall. Prior similar symptoms: No Recent Illness/Hospitalization: No [facility] Medical History Carotid bruit Essential hypertension Hyperlipidemia Laceration of left index finger Osteoarthritis Paresthesia Peripheral vascular occlusive disease Home Medications clopidogrel 75 mg tablet 75 mg PO DAILY #90 tabs 05/18/18 [Rx Last Taken Unknown] aspirin 81 mg chewable tablet 81 mg PO DAILY 10/13/20 [History Last Taken Unknown] simvastatin 40 mg tablet 40 mg PO QHS #90 tabs 02/19/21 [Rx Last Taken Unknown] levothyroxine 75 mcg capsule 75 mcg PO DAILY 10/16/21 [History Last Taken Unknown] losartan 50 mg tablet 50 mg PO DAILY #90 tabs 11/20/21 [Rx Last Taken Unknown] Allergy/AdvReac Type Severity Reaction Status Date / Time bacitracin Allergy Rash Verified 01/17/22 12:59 latex Allergy Unknown Verified 01/17/22 12:59 Penicillins Allergy Unknown Verified 01/17/22 12:59 FIBER GLASS Allergy Unknown Uncoded 01/17/22 12:59 Family History Grandfather Myocardial infarction Uncle Myocardial infarction, Onset Age: 55 Surgical History History of angioplasty of peripheral vessel (05/17/13) Hx of carpal tunnel repair Hx of hemorrhoidectomy Social History Smoking Status: Former smoker ROS ROS ED ROS Narrative Headache. Review of Systems ROS Unobtainable: Denies due to encephalopathy Constitutional Constitutional ED: Denies chills or fever(s) Eyes Eyes: Denies blurry vision ENT ENT ED: Denies ear pain Cardiovascular Cardiovascular: Denies chest pain Respiratory/Chest Respiratory/Chest: Denies cough or dyspnea Gastrointestinal Gastrointestinal: Denies abdominal pain Genitourinary Genitourinary ED: Denies dysuria Musculoskeletal Musculoskeletal: Denies arthralgias Integumentary Denies abscess Neurologic Neurologic: Reports headache(s) Psychiatric Psychiatric: Denies anxiety Endocrine Endocrinology: Denies polydipsia Hematologic/Lymphatic Hematologic/Lymphatic: Denies easy bleeding Allergic/Immunologic Allergic/Immunologic ED: Denies mouth swelling EXAM Physical Exam Narrative Exam Narrative: 61-year-old female no acute distress. Vital signs stable afebrile. H EENT exam pupils round reactive light. No facial trauma. Scalp nontender no hematoma. No laceration. C-spine nontender full range of motion her neck. Back nontender. Spine nontender. Lungs clear to auscultation bilaterally. Heart regular rhythm rate about 90 no murmur. Chest were nontender. Abdomen soft nontender. Moving all 4 extremities. 5/5 director of learning strength. Dorsi plantarflexion intact. Normal range of motion. Nontender no deformity. Neurologic exam normal. GCS of 15. Const Vital Signs: 01/17/22 12:59 Temperature 97.8 F Temperature Source Temporal Pulse Rate 89 Respiratory Rate 16 Blood Pressure 127/84 H Blood Pressure Mean 98 Pulse Ox 97 Oxygen Delivery Method Room Air Positive well nourished and well developed; Negative for obese, cachectic, contractures or unkempt General Appearance ED: well developed and NAD; Negative for unkempt, cachectic, contractures, cyanotic or diaphoretic Nutritional Appearance: Negative for cachectic or obese HEENT Reports normocephalic and moist mucous membranes; Denies dry mucous membranes trauma; Negative for atraumatic, tenderness, temporal artery tenderness or vesicular rash Face and Sinus: Negative for sinus tenderness Mouth ED: No dry mucous membranes Mouth: No dry mucous membranes Eyes PERRL and EOMs intact bilaterally General Eye ED: Negative for pale conjunctiva or scleral icterus Neck no lymphadenopathy, supple, no meningeal signs and no JVD General: Negative for tenderness Resp normal respiratory effort and clear to auscultation bilaterally Effort and Inspection: Negative for retractions Auscultation: Negative for rales, rhonchi or wheezes Cardio regular rate, regular rhythm, S1 normal heart sound, S2 normal heart sound and no murmurs Rate: Negative for bradycardia Rhythm: Negative for abnormal rhythm GI non-tender and non-distended Auscultation: normoactive bowel sounds Palpation: soft; Negative for firm or tender Back/Spine no CVA tenderness General Back: Negative for CVA tenderness or tenderness Cervical Spine: Negative for cervical spine tenderness Thoracic Spine / Upper Back: Negative for thoracic spinal tenderness Extremity normal to inspection and full ROM General Extremety ED: Negative for edema or tenderness General Extremity: Negative for edema Neuro oriented x3, CN's II-XII intact bilaterally and no sensory deficits noted Nadir Coma Scale: document GCS findings Spontaneous Obeys Commands Oriented 15 Sensorium / Orientation: awake, alert, oriented to person, oriented to place and oriented to time; Negative for orientation impaired, lethargic or stuporous Coordination / Balance: [id number] test normal and [id number] test normal Speech: speech normal Gait (Neuro): normal gait Motor Exam: strength 5/5 throughout Psych mental status grossly normal Appearance: Negative for unkempt Attitude: No agitated Mood & Affect: Negative for depressed Skin Lesions: no lesions Rashes: no rashes Trauma: Negative for abrasion MDM MDM MDM Narrative Medical decision making narrative: 61-year-old with fall 3 weeks ago had a significant head injury and was just taken off Plavix and still on aspirin. She has been having headaches since that time. She has a normal exam currently. CAT scan will be obtained. She will be given Tylenol for her headache. Repeat exam patient doing well at 1:58 PM. She will be discharged home. Treated as a concussion. Radiography Diagnostic Testing: Clinical Impression(s) from Imaging Studies Brain CT 01/17/22 13:15 IMPRESSION: No acute intracranial process identified. Electronically Signed: Kaleigh Coughlin MD at 13:49 EDT , CAT scan of the brain was unremarkable as read by the radiologist and reviewed by me. Discharge Plan Triage Chief Complaint: Headache ED Provider: Ric Murdock Dx/Rx/DC Orders Clinical Impression: Concussion, Headache Instructions: ED Concussion Prescriptions: No Action levothyroxine 75 mcg capsule 75 mcg PO DAILY aspirin 81 mg tablet,chewable 81 mg PO DAILY clopidogrel 75 mg tablet 75 mg PO DAILY Qty: 90 3RF simvastatin 40 mg tablet 40 mg PO QHS Qty: 90 3RF losartan 50 mg tablet 50 mg PO DAILY Qty: 90 3RF Primary Care Provider: Eliceo Zarate Chi Referrals: Eliceo Zarate Chi, MD [Primary Care Provider] - 1 Week if not improving Activity Restrictions/Additional Instructions: Your CAT scan was okay. We will treat you as a concussion. Plenty of fluids and rest. Tylenol for headaches. Follow-up with your doctor if not improving. Disposition Disposition: Home, Self Care
[2022-01-17] MEDS: Acetaminophen 325 MG Tablet 650 MG PO (13:32)
== END 2022-01-17 14:05 | disposition home or self-care (01) ==
PROVIDERS: Emergency Provider Emergency Medicine; PCP Family Medicine Geriatric Medicine; Visit Provider Emergency Medicine
DX: S06.0X0A Concussion without loss of consciousness, initial encounter (principal); I73.9 Peripheral vascular disease, unspecified; I10 Essential (primary) hypertension; Z87.891 Personal history of nicotine dependence; E78.5 Hyperlipidemia, unspecified; W18.09XA Striking against other object with subsequent fall, initial encounter
CPT/HCPCS: 70450; 99283

== ENCOUNTER 2022-04-12 14:25 | Emergency (ER) | payer OTHER, SELFPAY ==
[2022-04-12 14:27] VITALS: BP 186/104; PULSE 81; RESP 18; TEMP 35.8; O2SAT 96; BMI 26.3
--- NOTE | 2022-04-12 15:42 | EX.ED.VIS.HA ---
HPI History of Present Illness Chief Complaint: Headache Narrative Narrative: 61-year-old female presents because of chronic headache since she fell at work in November of last year, approximately 5 months ago. She relates history that she has had essentially daily headaches since she had fallen. She was on blood thinners at that time. She states that she did not file a first report of injury or claim Worker's Comp. when she initially fell, as she states that no one told her to be evaluated. Subsequently, she states that she came to the emergency department a few weeks later, and had a CT of the brain which showed no acute process. There was no bleeding on her brain. She has been following up with her primary care physician, who referred her to a neurologist because of her chronic headaches, but she cannot see a neurologist until June, 3 months from now. She states she has pain on the left side of her head, and pressure. She denies any exacerbating or alleviating factors. This is the same type of headache that she has had for months. She states that she went to the [facility] yesterday, and was told that she had a old claim number. [facility] Medical History Carotid bruit Essential hypertension Hyperlipidemia Laceration of left index finger Osteoarthritis Paresthesia Peripheral vascular occlusive disease Home Medications clopidogrel 75 mg tablet 75 mg PO DAILY #90 tabs 05/18/18 [Rx Last Taken Unknown] aspirin 81 mg chewable tablet 81 mg PO DAILY 10/13/20 [History Last Taken Unknown] levothyroxine 75 mcg capsule 75 mcg PO DAILY 10/16/21 [History Last Taken Unknown] losartan 50 mg tablet 50 mg PO DAILY #90 tabs 11/20/21 [Rx Last Taken Unknown] simvastatin 40 mg tablet 40 mg PO QHS #90 tabs 02/14/22 [Rx Last Taken Unknown] Allergy/AdvReac Type Severity Reaction Status Date / Time bacitracin Allergy Rash Verified 04/12/22 14:30 latex Allergy Unknown Verified 04/12/22 14:30 Penicillins Allergy Unknown Verified 04/12/22 14:30 FIBER GLASS Allergy Unknown Uncoded 04/12/22 14:30 Family History Grandfather Myocardial infarction Uncle Myocardial infarction, Onset Age: 55 Surgical History History of angioplasty of peripheral vessel (05/17/13) Hx of carpal tunnel repair Hx of hemorrhoidectomy Social History Smoking Status: Former smoker ROS ROS ED ROS Narrative Constitutional: No fever, no chills. HEENT: No sore throat. No neck pain. No loss of vision. No rhinorrhea. Cardiovascular: No chest pain. No palpitations. No pedal edema. Respiratory: No cough, no shortness of breath. Abdominal: No abdominal pain. No nausea. No vomiting. Genitourinary: No dysuria. No hematuria. Musculoskeletal: No myalgias. No arthralgias. Neurologic: Left-sided, daily headaches. No dizziness. No lightheadedness. Skin: No rash. No change in color. Psychiatric: No depression. No anxiety. EXAM Physical Exam Narrative Exam Narrative: Afebrile. Vital signs noted. HEENT: Normocephalic. Atraumatic. PERRL, EOMI. Neck soft and supple. No point tenderness or step off. Cardiovascular: Regular rate and rhythm. No murmurs, rubs, or gallops appreciated. Respiratory: No tachypnea. Lungs clear to auscultation bilaterally. Gastrointestinal: Abdomen soft, nontender, with normoactive bowel sounds. No rebound or guarding. Neurological: Awake. Alert. Nonfocal, nonlateralizing. DTRs equal and symmetric. Skin: No rash. Normal color. No pallor. Musculoskeletal: No pedal edema. Full range of motion extremities. Theatric: Tearful on examination. Const Vital Signs: 04/12/22 14:27 Temperature 96.5 F L Temperature Source Temporal Pulse Rate 81 Respiratory Rate 18 Blood Pressure 186/104 H Blood Pressure Mean 131 Pulse Ox 96 Oxygen Delivery Method Room Air MDM MDM MDM Narrative Medical decision making narrative: I reviewed her EMR, and her outpatient visit here to the emergency department. I reviewed her CT scan results which showed no acute process. I had a lengthy discussion with the patient. She states that she is frustrated that she cannot see a neurologist until June. She had been referred by her primary care provider. She states that he does not do workers compensation. I had mentioned the [facility] and that is when she stated that she was there yesterday, but she states that they refused to see her and fill out her [place] of workman's compensation C9 forms. She was told that emergency physicians do not fill out that type of paperwork because she needs to see someone in follow-up for her claim on a continual basis. She was reassured. I do not think that she has any emergent or life-threatening condition currently, her medical screening examination today is normal, and her head injury is 5 months remote. I feel she can be discharged safely home. Return instructions to the emergency department were reviewed. Disposition is discharged home in stable condition. Discharge Plan Triage Chief Complaint: Headache ED Provider: Zeke Wakefield Dx/Rx/DC Orders Clinical Impression: Post concussion syndrome, Chronic headache Instructions: Coping with Concussion, ED Concussion, ED Pain Management: Chronic Prescriptions: No Action levothyroxine 75 mcg capsule 75 mcg PO DAILY aspirin 81 mg tablet,chewable 81 mg PO DAILY clopidogrel 75 mg tablet 75 mg PO DAILY Qty: 90 3RF losartan 50 mg tablet 50 mg PO DAILY Qty: 90 3RF simvastatin 40 mg tablet 40 mg PO QHS Qty: 90 3RF Primary Care Provider: Eliceo Zarate Chi Referrals: Eliceo Zarate Chi, MD [Primary Care Provider] - As soon as possible Disposition Disposition: Home, Self Care
== END 2022-04-12 16:02 | disposition home or self-care (01) ==
PROVIDERS: Emergency Provider Emergency Medicine; PCP Family Medicine Geriatric Medicine; Visit Provider Emergency Medicine
DX: F07.81 Postconcussional syndrome (principal); E78.5 Hyperlipidemia, unspecified; I10 Essential (primary) hypertension; R51.9 Headache, unspecified; Z87.891 Personal history of nicotine dependence
CPT/HCPCS: 99282

== ENCOUNTER → 2022-04-15 | Outpatient (CLI) | payer OTHER, SELFPAY ==
--- NOTE | 2022-04-15 11:41 | RAD_ITS ---
STUDY: X-RAY - LEFT WRIST REASON FOR EXAM: Female, 61 years old. Pain. TECHNIQUE: 3 view(s) of the wrist were obtained. COMPARISON: None. FINDINGS: Osteopenia. Normal visualized distal radius and ulna. Normal radiocarpal articulation. Normal distal radioulnar articulation. Normal carpal bones. Mild arthrosis of the radial carpal row. Mild arthrosis of the first CMC joint. Normal second through fifth carpometacarpal articulations. Normal visualized metacarpal bones. The soft tissue structures are unremarkable. RAD/Wrist min 3 Views IMPRESSION: Osteopenia with mild osteoarthritic changes as described. No acute abnormality, chondrocalcinosis or erosive changes. Electronically Signed: Sterling Leach, at 12:17 EST ,
--- NOTE | 2022-04-15 11:42 | RAD_ITS ---
STUDY: X-RAY - LEFT ELBOW REASON FOR EXAM: Female, 61 years old. Pain. TECHNIQUE: 3 view(s) of the elbow. COMPARISON: None. FINDINGS: Osteopenia. Normal visualized humerus, radius and ulna. Normal radiocapitellar and ulnotrochlear articulations. The soft tissue structures are unremarkable. RAD/Elbow min 3 Views IMPRESSION: Osteopenia with no other abnormality. Electronically Signed: Sterling Leach, at 12:19 EST ,
== END | disposition home or self-care (01) ==
LOC: RAD 11:40
PROVIDERS: PCP Family Medicine Geriatric Medicine; Visit Provider Family Medicine Geriatric Medicine
DX: M85.80 Other specified disorders of bone density and structure, unspecified site (principal); M25.522 Pain in left elbow; M19.90 Unspecified osteoarthritis, unspecified site; M25.532 Pain in left wrist; R20.9 Unspecified disturbances of skin sensation
CPT/HCPCS: 73080; 73110

== ENCOUNTER → 2022-05-07 | Outpatient (CLI) | payer OTHER, SELFPAY ==
--- NOTE | 2022-05-07 07:50 | ART_ITS ---
Reason For Study: atherosclerosis with claudication Procedure A bilateral lower extremity continuous wave Doppler with analog waveform analysis and ankle brachial indexes. Left Segmental Pressures Left brachial= 167mmHg. Left posterior tibial artery = 161mmHg. Left dorsalis pedis artery = 167mmHg. Left digit = 125 mmHg. The left dorsalis pedis waveforms are triphasic. The left posterior tibial artery waveforms are triphasic. Right Segmental Pressures Right brachial= 162mmHg. Right posterior tibial artery = 158mmHg. Right dorsalis pedis artery = 169mmHg. Right digit = 119 mmHg. The right dorsalis pedis waveforms are triphasic. The right posterior tibial artery waveforms are biphasic. Indices The right ankle brachial index by the dorsalis pedis is 1.01. The right ankle brachial index by the posterior tibial artery is .95. The right digital-brachial index is .71. The left ankle brachial index by the posterior tibial artery is .96. The left ankle brachial index by the dorsalis pedis is 1.0. The left digital-brachial index is .75. VL/Ankle Brachial Index Interpretation Summary Bilateral normal at rest with triphasic flow and MARK 1.0 and 1/0. Ordering Physician: Benjy Robertson Performed By: Will Soliz RVT
--- NOTE | 2022-05-07 07:50 | CDU_ITS ---
Reason For Study: carotid stenosis Rt. Velocities/BP Lt. Velocities/BP Prox CCA 105.8/26.7 cm/sec. Prox CCA 99.2/24.5 cm/sec. Mid CCA 92.7/21.2 cm/sec. Mid CCA 92.7/27.8 cm/sec. Dist CCA 92.7/28.9 cm/sec. Dist CCA 97.1/33.3 cm/sec. Prox ICA 130.2/33.4 cm/sec. Prox ICA 83.9/26.2 cm/sec. Mid ICA 144.8/38.9 cm/sec. Mid ICA 146.7/44.4 cm/sec. Dist ICA 132.1/48.0 cm/sec. Dist ICA 70.4/26.2 cm/sec. Rt. ICA/CCA = 1.6. Lt. ICA/CCA = 1.6. Prox ECA 97.1/21.2 cm/sec. Prox ECA 121.1/18.8 cm/sec. Rt. Vert. 56.0/16.3 cm/sec. Lt. Vert. 80.6/22.3 cm/sec. Right Extracranial There is homogeneous, smooth atherosclerotic plaque noted in the right common carotid artery. There is heterogeneous, irregular atherosclerotic plaque noted in the right internal carotid artery. There is heterogeneous, irregular atherosclerotic plaque noted in the right external carotid artery. Antegrade flow is noted in the right vertebral artery. Left Extracranial There is homogeneous, smooth atherosclerotic plaque noted in the left common carotid artery. There is heterogeneous, irregular atherosclerotic plaque noted in the left internal carotid artery. There is homogeneous, smooth atherosclerotic plaque noted in the left external carotid artery. Antegrade flow is noted in the left vertebral artery. Procedure Carotid Duplex 78326. This is a Carotid Duplex examination using B-mode, color flow and specral Doppler. The exam was diagnostic. Exam performed in department. VL/Carotid Duplex Ultrasound Interpretation Summary Moderate (50-69%) stenosis right extracranial internal carotid. Moderate (50-69 %) stenosis left extracranial internal carotid. Flow within the vertebral arteries is antegrade bilaterally. Ordering Physician: Benjy Robertson Performed By: Will Soliz RVT
--- NOTE | 2022-05-07 07:51 | AAVD_ITS ---
Reason For Study: aortoiliac occlusive disease Aorta Measurements Aorta Doppler Measurements Proximal aorta measures1.84 x 1.71cm. in cross- Peak systolic flow velocities within the proximal sectional axis. aorta measure 73.0 cm/sec. Proximal aorta measures1.75cm. in longitudinal Peak systolic flow velocities within the mid aorta axis. measure 60.9 cm/sec. Mid aorta measures1.18 x 1.09cm. in cross- Peak systolic flow velocities within the distal sectional axis. aorta measure 83.3 cm/sec. Mid aorta measures1.08cm. in longitudinal axis. Distal aorta measures.88 x .81cm. in cross- sectional axis. Distal aorta measures.85cm. in longitudinal axis. Left Iliac Artery Left iliac artery measures .53 x .6 cm. in the cross-sectional axis. Left iliac artery measures .57 cm. in the longitudinal axis. Peak systolic velocity in the left iliac artery measures 221.6 cm/sec. Right Iliac Artery Right iliac artery measures .57 x .56 cm. in the cross-sectional axis. Right iliac artery measures .55 cm. in the longitudinal axis. Peak systolic velocity in the right iliac artery measures 254.2 cm/sec. Procedure Aorta IVC Iliac vasculature or bypass grafts [id number]. The exam was diagnostic. Exam performed in department. VL/Abd Aortic/IVC Duplex scan Interpretation Summary Bilateral moderate iliac stenosis with right pardeep psv 254 and left mild pardeep psv 221. Ordering Physician: Benjy Robertson Performed By: Will Soliz RVT
== END | disposition home or self-care (01) ==
PROVIDERS: PCP Family Medicine Geriatric Medicine; Visit Provider Surgery Vascular Surgery
DX: Z48.812 Encounter for surgical aftercare following surgery on the circulatory system (principal); I74.09 Other arterial embolism and thrombosis of abdominal aorta; I70.213 Atherosclerosis of native arteries of extremities with intermittent claudication, bilateral legs; I65.23 Occlusion and stenosis of bilateral carotid arteries
CPT/HCPCS: 93880; 93922; 93978

== ENCOUNTER → 2022-07-17 | Outpatient (CLI) | payer OTHER, SELFPAY ==
[2022-07-17 13:01] LABS: Absolute Lymphocyte Count 2.03 X10^3/uL (0.83-4.51); Absolute Neutrophil Count 4.6 X10^3/uL (2.0-7.7); Basophil# 0.03 X10^3/uL; Basophil% 0.4 % (0-1); Eosinophil# 0.19 X10^3/uL; Eosinophils% 2.6 % (0-5); Hematocrit 44.3 % (37-47); Hemoglobin 14.5 g/dL (12.0-15.0); Lymphocyte # 2.03 X10^3/ul (0.83-4.51); Lymphocyte % 27.7 % (19-41); Mean Corp Hgb Conc 32.7 g/dL (32-36); Mean Corpuscular Volume 94.7 fL (81-99); Mean Platelet Vol. 10.3 fl (6.2-12.0); Monocyte# 0.48 X10^3/uL; Monocyte% 6.5 % (0-10); NRBC Flagged by Analyzer 0 % (0-5); Neutrophil # 4.57 X10^3/uL (2.7-7.7); Neutrophil % 62.4 % (47-70); Platelet Count 266 K/mm3 (150-450); RBC Distribution Width CV 11.7 % (11.6-14.6); RBC Distribution Width SD 40.8 fl (35.1-43.9); Red Blood Count 4.68 M/mm3 (4.2-5.4); White Blood Count 7.3 K/mm3 (4.4-11.0)
[2022-07-17 13:55] LABS: ALB/GLOB Ratio 1.2 RATIO (0.9-2.4); AST(SGOT) 18 U/L (15-37); Alanine Aminotransfer ALT/SGPT 33 U/L (13-56); Albumin, Serum 3.9 g/dL (3.2-5.0); Alkaline Phosphatase 81 U/L (45-117); Anion Gap 6 (5-15); BUN 16 mg/dL (7-18); BUN/Creat Ratio 18.1 RATIO (10-20); Calcium,Total 9.2 mg/dL (8.5-10.1); Chloride 107 mmol/L (98-107); Creatinine, Serum 0.88 mg/dL (0.55-1.02); EST Glomerular Filtration Rate 69 mL/min (>60); Est Glom Filt Rate - Afr Amer 83 mL/min (>60); Globulin 3.3 g/dL (2.2-4.2); Glucose 123 mg/dL (74-106); Potassium 3.9 mmol/L (3.5-5.1); Protein, Total 7.2 g/dL (6.4-8.2); Sodium Level 137 mmol/L (136-145); Thyroid Stim Hormone (TSH) 4.88 uIU/mL (0.358-3.74)
== END | disposition home or self-care (01) ==
LOC: POLAB3 11:03
PROVIDERS: PCP Family Medicine Geriatric Medicine; Visit Provider Family Medicine Geriatric Medicine
DX: I10 Essential (primary) hypertension (principal)
CPT/HCPCS: 36415; 80053; 84443; 85025

== ENCOUNTER → 2022-09-11 | Outpatient (CLI) | payer OTHER, SELFPAY ==
[2022-09-11 12:19] LABS: Thyroid Stim Hormone (TSH) 2.96 uIU/mL (0.358-3.74)
== END | disposition home or self-care (01) ==
LOC: LAB 10:10
PROVIDERS: PCP Family Medicine Geriatric Medicine; Referring Provider Family Medicine Geriatric Medicine; Visit Provider Family Medicine Geriatric Medicine
DX: E03.9 Hypothyroidism, unspecified (principal)
CPT/HCPCS: 36415; 84443

== ENCOUNTER → 2023-05-06 | Outpatient (CLI) | payer OTHER, SELFPAY ==
--- NOTE | 2023-05-06 08:03 | ART_ITS ---
Reason For Study: Atherosclerosis Procedure A bilateral lower extremity continuous wave Doppler with analog waveform analysis and ankle brachial indexes. Left Segmental Pressures Left brachial= 135mmHg. Left posterior tibial artery = 138mmHg. Left dorsalis pedis artery = 130mmHg. The left dorsalis pedis waveforms are triphasic. The left posterior tibial artery waveforms are triphasic. Right Segmental Pressures Right brachial= 131mmHg. Right posterior tibial artery = 127mmHg. Right dorsalis pedis artery = 123mmHg. The right dorsalis pedis waveforms are biphasic. The right posterior tibial artery waveforms are biphasic. Indices The right ankle brachial index by the dorsalis pedis is 0.91. The right ankle brachial index by the posterior tibial artery is 0.94. The left ankle brachial index by the dorsalis pedis is 0.96. The left ankle brachial index by the posterior tibial artery is 1.02. VL/Ankle Brachial Index Interpretation Summary Resting ankle-brachial indices appear bilaterally normal. Ordering Physician: Benjy Robertson Referring Physician: Eliceo Zarate Chi Performed By: Roberta Hankins RVT
--- NOTE | 2023-05-06 08:03 | AAVD_ITS ---
Reason For Study: Atherosclerosis Aorta Measurements Aorta Doppler Measurements Proximal aorta measures1.46 x 1.46cm. in cross- Peak systolic flow velocities within the proximal sectional axis. aorta measure 79.6 cm/sec. Proximal aorta measures1.53cm. in longitudinal Peak systolic flow velocities within the mid aorta axis. measure 88.6 cm/sec. Mid aorta measures1.35 x 1.40cm. in cross- Peak systolic flow velocities within the distal sectional axis. aorta measure 139.7 cm/sec. Mid aorta measures1.38cm. in longitudinal axis. Distal aorta measures0.98 x 0.83cm. in cross- sectional axis. Distal aorta measures0.92cm. in longitudinal axis. Aorta distal, Stent noted. Left Iliac Artery Left iliac artery measures 0.62 x 0.61 cm. in the cross-sectional axis. Left iliac artery measures 0.55 cm. in the longitudinal axis. Peak systolic velocity in the left iliac artery measures 226 cm/sec. Stent noted. Right Iliac Artery Right iliac artery measures 0.48 x 0.46 cm. in the cross-sectional axis. Right iliac artery measures 0.51 cm. in the longitudinal axis. Peak systolic velocity in the right iliac artery measures 348.2 cm/sec. Stent noted. Procedure Aorta IVC Iliac vasculature or bypass grafts [id number]. Exam performed in department. VL/Abd Aortic/IVC Duplex scan Interpretation Summary Bilateral iliac stenosis. Ordering Physician: Benjy Robertson Referring Physician: Eliceo Zarate Chi Performed By: Roberta Hankins RVT
--- OUTSIDE RECORDS SUMMARY | 2023-05-06 08:21 | XMS RPT_ITS | CCD ---
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 Name Role Phone Waqar Browndejah Locke Unavailable KevinMyra Unavailable BrownMyra Unavailable JAZLYN Muir, Lynn Melo Unavailable Unavailabl e Melodie Argueta Unavailable Unavailable Unavailable Primary Care Provider Unavailroseanna e JOEY CHAVEZ Referring Unavailable JOEY CHAVEZ Attending Unavailable JOEY CHAVEZ Attending Unavailable JOEY CHAVEZ Attending Unavailable JOEY CHAVEZ Attending Unavailable Allergies Allergy Classification Reported Allergen(s) Allergy Type Date of Onset Reaction(s) Facility (9 sources) bacitracin drug allergy 3 Rash [facility] Work Phone: (7 sources) natural latex rubber; Translations: [LATEX] allergy to substance 6 [facility] Work Phone: (5 sources) Penicillins (Antibiotic) drug allergy 3 [facility] Work Phone: (5 sources) FIBER GLASS drug allergy 3 [facility] Work Phone: (4 sources) Latex Propensity to adverse reactions 6 Swelling [facility] Work Phone: (6 sources) Penicillins; Translations: [PENICILLINS] Propensity to adverse reactions 6 Itching [facility] Work Phone: (6 sources) Fiberglass; Translations: [FIBERGLASS] Propensity to adverse reactions 7 Hives [facility] Work Phone: (2 sources) Bacitracin; Translations: [BACITRACIN] Drug Allergy 3 [facility] Other [facility] Medications Current Medications Medication Drug Class(es) Dates Sig (Normalized) Sig (Original) gabapentin 300 mg oral capsule (1 source) Anti-epileptic Agent Start: 01-17-2023 End: 03-02-2023 take 1 capsule by mouth once daily at bedtime, then take 2 capsules by mouth once daily at bedtime, then take 2 capsules by mouth twice daily gabapentin (NEURONTIN) 300 mg capsule Indications: Post-concussion headache Take 1 capsule by mouth daily at bedtime for 7 days, THEN 2 capsules daily at bedtime for 7 days, THEN 2 capsules two times a day for 30 days. 141 capsule 0 01/17/2023 03/02/2023 Active Completed/Discontinued Medications Medication Drug Class(es) Dates Sig (Normalized) Sig (Original) Arm Brace (YOSEF ELBOW BRACE) misc (4 sources) Start: 05-30-2016 Arm Brace (YOSEF ELBOW BRACE) misc 1 Each once daily. 1 Each 0 05/30/2016 Active Problems Active Problems Problem Classification Problem Date Documented Da te Episodic/Chronic Aortic and peripheral arterial embolism or thrombosis (5 sources) Occlusion of artery; Translations: [Embolism and thrombosis of unspecified artery] Onset: 03-19-2013 03-19-2013 Chronic Chronic obstructive pulmonary disease and bronchiectasis (4 sources) Chronic obstructive lung disease; Translations: [Chronic obstructive pulmonary disease, unspecified] Onset: 10-24-2009 10-24-2009 Chronic Delirium, dementia, and amnestic and other cognitive disorders (2 sources) Postconcussion syndrome; Translations: [Postconcussional syndrome] Chronic Disorders of lipid metabolism (5 sources) Hyperlipidemia; Translations: [Hyperlipidemia, unspecified] Onset: 04-09-2013 04-09-2013 Chronic Essential hypertension (5 sources) Hypertensive disorder; Translations: [Essential (primary) hypertension] Onset: 03-22-2013 03-22-2013 Chronic Headache; including migraine (4 sources) Headache; Translations: [Post-traumatic headache, unspecified, not intractable] Onset: 01-17-2023 Episodic Miscellaneous mental health disorders (1 source) Psychogenic headache; 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 Osteoarthritis (5 sources) Osteoarthritis; Translations: [Unspecified osteoarthritis, unspecified site] Onset: 03-19-2013 03-19-2013 Chronic Peripheral and visceral atherosclerosis (5 sources) Claudication; Translations: [Peripheral vascular disease, unspecified] Onset: 03-19-2013 03-19-2013 Chronic Prolapse of female genital organs (4 sources) Disorder of rectum; Translations: [Rectocele] Onset: 06-30-2013 06-30-2013 Chronic Screening or history of mental health and substance abuse (10 sources) Tobacco dependence syndrome; Translations: [Nicotine dependence, unspecified, uncomplicated] Onset: 03-19-2013 Resolved: 03-22-2013 03-22-2013 Chronic Substance-related disorders (4 sources) Smoker; Translations: [Nicotine dependence, unspecified, uncomplicated] Onset: 10-24-2009 10-24-2009 Chronic Unclassified (9 sources) Long-term drug therapy; Translations: [Long-term (current) use of other medications] Onset: 04-09-2013 04-09-2013 Past or Other Problems Problem Classification Problem Date Documented Date Episodic/Chronic Anal and rectal conditions (4 sources) Anal intraepithelial neoplasia; 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] Onset: 06-30-2013 06-30-2013 Episodic Congestive heart failure; nonhypertensive (4 sources) Diastolic dysfunction; Translations: [Other ill-defined heart diseases] Onset: 04-01-2013 04-01-2013 Episodic Hemorrhoids (4 sources) Internal hemorrhoids; Translations: [Other hemorrhoids] Onset: 08-02-2009 08-02-2009 Episodic Nonspecific chest pain (5 sources) Chest pain, unspecified; Translations: [Chest pain, unspecified] Onset: 03-22-2013 03-22-2013 Episodic Other aftercare (2 sources) Other correction (current) drug therapy; Translations: [Long-term (current) use of other medications] Onset: 04-09-2013 03-14-2015 Episodic Other circulatory disease (6 sources) Carotid bruit; Translations: [Diastolic dysfunction] Onset: 03-19-2013 03-19-2013 Episodic Other connective tissue disease (5 sources) Pain in limb; Translations: [Pain in unspecified limb] Onset: 03-19-2013 03-19-2013 Episodic Other non-traumatic joint disorders (4 sources) Pain in right hip joint; Translations: [Pain in right hip] Onset: 10-24-2009 10-24-2009 Episodic Other nutritional; endocrine; and metabolic disorders (6 sources) Body mass index (BMI) 26.0-26.9, adult; Translations: [Body mass index (BMI) 29.0-29.9, adult] Onset: 03-22-2013 03-22-2013 Episodic Other nutritional; endocrine; and metabolic disorders (4 sources) Body mass index (BMI) 29.0-29.9, adult; Translations: [Body mass index (BMI) 29.0-29.9, adult] Onset: 03-22-2013 10-09-2016 Episodic Other screening for suspected conditions (not mental disorders or infectious disease) (4 sources) Mammography abnormal; Translations: [Other abnormal and inconclusive findings on diagnostic imaging of breast] Onset: 08-29-2009 08-29-2009 Episodic Results Test Name Value Interpretation Reference Range Facil ity Vital Signs Date Time Vital Sign Value Performing Clinician Faci lity 01-17-2023 10:05-0400 Body height 157.5 cm Joey Chavez MD Work Phone: [facility] 01-17-2023 10:05-0400 Body weight 71.49 kg Joey Chavez MD Work Phone: [facility] 01-17-2023 10:05-0400 Diastolic blood pressure 75 mm[Hg] Joey Chavez MD Work Phone: [facility] 01-17-2023 10:05-0400 Heart rate 54 /min Joey Chavez MD Work Phone: [facility] 01-17-2023 10:05-0400 SaO2% (BldA) [Mass fraction] 99 % Joey Chavez MD Work Phone: [facility] 01-17-2023 10:05-0400 Systolic blood pressure 159 mm[Hg] Joey Chavez MD Work Phone: [facility] 08-05-2022 15:47-0400 Body height 157.5 cm Joey Chavez MD Work Phone: [facility] 08-05-2022 15:47-0400 Body weight 70.31 kg Joey Chavez MD Work Phone: [facility] 08-05-2022 15:47-0400 Diastolic blood pressure 89 mm[Hg] Joey Chavez MD Work Phone: [facility] 08-05-2022 15:47-0400 Heart rate 72 /min Joey Chavez MD Work Phone: [facility] 08-05-2022 15:47-0400 Respiratory rate 16 /min Joey Chavez MD Work Phone: [facility] 08-05-2022 15:47-0400 SaO2% (BldA) [Mass fraction] 97 % Joey Chavez MD Work Phone: [facility] 08-05-2022 15:47-0400 Systolic blood pressure 169 mm[Hg] Joey Chavez MD Work Phone: [facility] 05-06-2022 08:36-0500 Body height 158.8 cm Joey Chavez MD Work Phone: [facility] 05-06-2022 08:36-0500 Body weight 69.4 kg Joey Chavez MD Work Phone: [facility] 05-06-2022 08:36-0500 Diastolic blood pressure 96 mm[Hg] Joey Chavez MD Work Phone: [facility] 05-06-2022 08:36-0500 Heart rate 74 /min Joey Chavez MD Work Phone: [facility] 05-06-2022 08:36-0500 Respiratory rate 16 /min Joey Chavez MD Work Phone: [facility] 05-06-2022 08:36-0500 SaO2% (BldA) [Mass fraction] 97 % Joey Chavez MD Work Phone: [facility] 05-06-2022 08:36-0500 Systolic blood pressure 173 mm[Hg] Joey Chavez MD Work Phone: [facility] 10-09-2016 08:13-0400 BMI (Body Mass Index) 29.89 kg/m2 [facility] Work Phone: 10-09-2016 08:13-0400 BP Diastolic 74 mm[Hg] [facility] Work Phone: 10-09-2016 08:13-0400 BP Systolic 130 mm[Hg] [facility] Work Phone: 10-09-2016 08:13-0400 Height 154.94 cm [facility] Work Phone: 10-09-2016 08:13-0400 Pulse (Heart Rate) 72 /min [facility] Work Phone: 10-09-2016 08:13-0400 Respiratory Rate 20 /min [facility] Work Phone: 10-09-2016 08:13-0400 Weight 71.76 kg [facility] Work Phone: 04-11-2016 14:38-0500 BSA (Body Surface Area) 1.68 m2 [facility] Work Phone: 03-14-2015 13:24-0500 BP Diastolic 80 mm[Hg] [facility] Work Phone: 03-14-2015 13:24-0500 BP Systolic 138 mm[Hg] [facility] Work Phone: 03-14-2015 13:24-0500 Pulse (Heart Rate) 70 /min [facility] Work Phone: 03-22-2013 10:59-0500 Heart rate 60 /min [facility] Work Phone: 03-22-2013 10:59-0500 Heart rate 406 ms [facility] Work Phone: Encounters Encounter Date Encounter Type Care Provider Facility Start: 01-17-2023 End: 01-18-2023 ambulatory JOEY CHAVEZ Facility:[facility] Start: 01-17-2023 End: 01-17-2023 Patient encounter procedure Joey Chavez MD Work Phone: Neurology Procedures Date Procedure Procedure Detail Performing Clinician Start: 10-24-2016 Lipid 1996 panel - S joanie or Plasma Joey Chavez MD Work Phone: Start: 10-24-2016 End: 10-31-2016 *Hepatic Function Panel Dmitry Dixon MD Work Phone: Start: 10-24-2016 End: 10-31-2016 Lipid 1996 panel - Serum or Plasma Dmitry Dixon MD Work Phone: Start: 10-09-2016 End: 10-09-2016 Dietary management education, guidance, and counseling Myra Brown Start: 10-09-2016 End: 10-09-2016 TYRELL Fulton [employer] Work Phone: Start: 10-09-2016 End: 10-09-2016 Follow Up Appt 1 year Davon Fulton [employer] Work Phone: Start: 04-11-2016 End: 04-26-2016 *Hepatic Function Panel Dmitry Dixon MD Work Phone: Start: 04-11-2016 End: 04-11-2016 BEKAN Dmitry Dixon MD Work Phone: Start: 04-11-2016 End: 04-11-2016 Follow Up Appt 6 months Dmitry Dixon MD Work Phone: Start: 04-11-2016 End: 04-26-2016 Lipid panel [AGGREGATE] Dmitry Dixon MD Work Phone: Start: 09-18-2015 End: 04-05-2016 *Hepatic Function Panel Dmitry Dixon MD Work Phone: Start: 09-18-2015 End: 04-05-2016 Lipid panel [AGGREGATE] Dmitry Dixon MD Work Phone: Start: 03-14-2015 End: 03-17-2015 *Hepatic Function Panel Dmitry Dixon MD Work Phone: Start: 03-14-2015 End: 03-27-2015 Carotid duplex Dmitry Dixon MD Work Phone: Start: 03-14-2015 End: 03-14-2015 BEKAN Dmitry Dixon MD Work Phone: Start: 03-14-2015 End: 03-14-2015 Follow Up Appt 1 year Lorie Dash Work Phone: Start: 03-14-2015 End: 03-17-2015 Lipid panel [AGGREGATE] Dmitry Dixon MD Work Phone: Start: 03-15-2014 End: 03-15-2014 DJN Dmitry Dixon MD Work Phone: Start: 03-15-2014 End: 03-15-2014 Follow Up Appt 1 year Lorie Dash Work Phone: Start: 02-28-2014 End: 03-14-2015 *Hepatic Function Panel Dmitry Dixon MD Work Phone: Start: 02-28-2014 End: 03-14-2015 Lipid panel [AGGREGATE] Dmitry Dixon MD Work Phone: Start: 05-17-2013 End: 09-16-2013 *Hepatic Function Panel Dmitry Dixon MD Work Phone: Start: 05-17-2013 End: 09-16-2013 Lipid panel [AGGREGATE] Dmitry Dixon MD Work Phone: Start: 03-22-2013 End: 04-09-2013 *Hepatic Function Panel Dmitry Dixon MD Work Phone: Start: 03-22-2013 End: 03-22-2013 DJN Dmitry Dixon MD Work Phone: Start: 03-22-2013 End: 09-16-2013 Echocardiography Dmitry Dixon MD Work Phone: Start: 03-22-2013 End: 03-22-2013 Follow Up Appt 1 year Lorie Dash Work Phone: Start: 03-22-2013 End: 04-09-2013 Lipid panel [AGGREGATE] Dmitry Dixon MD Work Phone: Start: 03-22-2013 End: 04-19-2013 Stress Echocardiogram - Dobutamine Dmitry Dixon MD Work Phone: Start: 08-04-2009 Sam Reed Work Phone: Plan of Treatment Date Care Activity Detail Author Start: 08-16-2027 Urine microalbumin profile DTaP,Tdap,Td Vaccine (3 - Td or Tdap) [facility] Start: 01-17-2026 Diabetes Screening Diabetes Screening [facility] Start: 11-29-2022 Covid-19 Vaccine ( season) Covid-19 Vaccine () [facility] Start: 11-29-2022 Influenza vaccination [facility] Start: 03-31-2022 DEPRESSION ASSESSMENT DEPRESSION ASSESSMENT [facility] Start: 11-29-2021 Influenza vaccination INFLUENZA (#1) [facility] Start: 10-31-2021 LIPID SCREEN LIPID SCREEN [facility] Start: 10-24-2021 Lipid 1996 panel - Serum or Plasma Lipid Screening [facility] Start: 06-07-2021 COVID-19 VACCINE (3 - Booster for Miladis series) COVID-19 VACCINE (3 - Booster for Miladis series) [facility] Start: 2020 RSV Vaccine (1 - 1-dose 60+ series) RSV Vaccine (1 - 1-dose 60+ series) [facility] Start: 10-14-2017 End: 10-14-2017 Appointment Appointment [facility] Work Phone: Start: 05-05-2017 End: 11-06-2016 *Hepatic Function Panel *Hepatic Function Panel [facility] Work Phone: Start: 05-05-2017 End: 11-06-2016 Lipid 1996 panel *Lipid Profile CC PCP [facility] Work Phone: Start: 10-24-2016 End: 10-31-2016 *Hepatic Function Panel *Hepatic Function Panel [facility] Work Phone: Start: 10-24-2016 End: 10-31-2016 Lipid panel [AGGREGATE] *Lipid Profile CC PCP [facility] Work Phone: Start: 10-09-2016 End: 10-09-2016 Appointment Appointment [facility] Work Phone: Start: 10-09-2016 End: 10-09-[address] [facility] Work Phone: Start: 10-09-2016 End: 10-09-2016 Follow Up Appt 1 year Follow Up Appt [address] [facility] Work Phone: Start: 04-11-2016 End: 04-26-2016 *Hepatic Function Panel *Hepatic Function Panel [facility] Work Phone: Start: 04-11-2016 End: 04-11-[address] [facility] Work Phone: Start: 04-11-2016 End: 04-11-2016 Follow Up Appt 6 months Follow Up Appt [address] [facility] Work Phone: Start: 04-11-2016 End: 04-26-2016 Lipid panel [AGGREGATE] *Lipid Profile CC PCP [facility] Work Phone: Start: 09-18-2015 End: 04-05-2016 *Hepatic Function Panel *Hepatic Function Panel [facility] Work Phone: Start: 09-18-2015 End: 04-05-2016 Lipid panel [AGGREGATE] *Lipid Profile CC PCP [facility] Work Phone: Start: 03-14-2015 End: 03-17-2015 *Hepatic Function Panel *Hepatic Function Panel [facility] Work Phone: Start: 03-14-2015 End: 03-14-2015 Carotid duplex Carotid duplex [facility] Work Phone: Start: 03-14-2015 End: 03-14-2015 DJN DJN [facility] Work Phone: Start: 03-14-2015 End: 03-14-2015 Follow Up Appt 1 year Follow Up Appt [address] [facility] Work Phone: Start: 03-14-2015 End: 03-17-2015 Lipid panel [AGGREGATE] *Lipid Profile CC PCP [facility] Work Phone: Start: 03-15-2014 End: 03-15-2014 BEKAN BEKAN [facility] Work Phone: Start: 03-15-2014 End: 03-15-2014 Follow Up Appt 1 year Follow Up Appt 1 year [facility] Work Phone: Start: 02-28-2014 End: 03-14-2015 *Hepatic Function Panel *Hepatic Function Panel [facility] Work Phone: Start: 02-28-2014 End: 03-14-2015 Lipid panel [AGGREGATE] *Lipid Profile CC PCP [facility] Work Phone: Start: 05-17-2013 End: 09-16-2013 *Hepatic Function Panel *Hepatic Function Panel [facility] Work Phone: Start: 05-17-2013 End: 09-16-2013 Lipid panel [AGGREGATE] *Lipid Profile CC PCP [facility] Work Phone: Start: 03-22-2013 End: 04-09-2013 *Hepatic Function Panel *Hepatic Function Panel [facility] Work Phone: Start: 03-22-2013 End: 03-22-2013 DJN DJN [facility] Work Phone: Start: 03-22-2013 End: 03-22-2013 Echocardiography Echocardiogram (complete) [facility] Work Phone: Start: 03-22-2013 End: 03-22-2013 Follow Up Appt 1 year Follow Up Appt 1 year [facility] Work Phone: Start: 03-22-2013 End: 04-09-2013 Lipid panel [AGGREGATE] *Lipid Profile CC PCP [facility] Work Phone: Start: 03-22-2013 End: 03-22-2013 Stress Echocardiogram - Dobutamine Stress Echocardiogram - Dobutamine [facility] Work Phone: Start: 08-04-2010 Mammography [facility] Start: 2010 SHINGRIX VACCINE (1 of 2) SHINGRIX VACCINE (1 of 2) [facility] Start: 2005 COLOGUARD (FIT-DNA) COLOGUARD (FIT-DNA) [facility] Start: 2005 Colonoscopy COLONOSCOPY [facility] Start: 2005 COLORECTAL CANCER SCREENING COLORECTAL CANCER SCREENING [facility] Start: [address] COLONOGRAPHY [facility] Start: 2005 DIABETES SCREEN DIABETES SCREEN [facility] Start: 2005 FECAL OCCULT BLOOD FECAL OCCULT BLOOD [facility] Start: 2005 SIGMOIDOSCOPY SIGMOIDOSCOPY [facility] Start: 1990 HPV TESTING HPV TESTING [facility] Start: 1990 Zoledronic acid therapy ALPHA-1 ANTITRYPSIN DEFICIENCY SCREENING [facility] Start: 1981 PAP TESTING PAP TESTING [facility] Start: 07-26-1979 Urine microalbumin profile DTAP,TDAP,TD (1 - Tdap) [facility] Start: 1978 ANNUAL PCP TEAM CHRONIC DISEASE VISIT ANNUAL PCP TEAM CHRONIC DISEASE VISIT [facility] Start: 1978 HEPATITIS C SCREENING HEPATITIS C SCREENING [facility] Start: 1978 HIV SCREENING HIV SCREENING [facility] Start: 1978 SPIROMETRY SPIROMETRY [facility] Start: 1966 PNEUMOCOCCAL (1 - PCV) PNEUMOCOCCAL (1 - PCV) [facility] Start: 1966 Pneumococcal vaccination Pneumococcal Vaccine (1 - PCV) [facility] Patient Education [facility] Work Phone: [facility] Immunizations Immunization Date Immunization Notes Care Provider Fa hyun 01-03-2021 influenza virus vaccine, unspecified formulation Joey Chavez MD Work Phone: [facility] 08-14-2005 tetanus toxoid, adsorbed Joey Chavez MD Work Phone: [facility] Work Phone: Payers Date Payer Category Payer Unknown [id number] 2022 Private Health Insurance [employer] PPO [id number] 2022-Present [phone] [address] [place] [address] PPO [id number] 2022 Private Health Insurance 200 [id number] 2021 Unknown [id number] 2021 Unknown [id number] Social History Date Type Detail Facility Start: 05-06-2022 Tobacco smoking stat us NHIS Ex-smoker [facility] History of tobacco use Current smoker [facility] History of tobacco use Cigarette Smoker [facility] Start: 05-06-2022 End: 08-05-2022 Cigarettes smoked current (pack per day) - Reported 1 [facility] Start: 05-06-2022 End: 01-17-2023 Alcohol intake Current drinker of alcohol (finding) [facility] Start: 1960 Sex Assigned At Not on file [facility] Start: 08-05-2022 End: 01-17-2023 Tobacco use panel [facility] National Score (1-10 0), lower number is lower risk 50 [facility] Clinical Notes 05-06-2022 to 01-17-2023 Patient InstructionsJoey Chavez MD - 01/17/2023 10:00 AM Sahil Chavez MD - 08/05/2022 4:00 PM EDTTelephone Encounter - Megan Fernandez RN - 05/17/2022 8:58 AM ESTPatient Instructions Note Date & Type Note Facility 01-17-2023 Note HNO ID: [id number] Author: Joey Chavez MD Service: ? Author Type: Physician Type: Progress Notes Filed: 01/17/2023 10:28 AM Note Text: General Neurology Outpatient Clinic - f/u visit Date: January 17, 2023 Patient Name: Kirsten Bowman Referring physician: No referring provider defined for this encounter. Primary physician: To use this Smartlink, specify the provider ID whose address you want to display, e.g., .[email or web address][1 (where 1 is the provider ID). Reason for Evaluation: Headaches f/u Initially seen 05/06/2022 regarding residual concussive symptoms, primarily headache and some mild cognitive changes, after November 2021 head trauma at work. MOCA normalized 05/31/2022. Most recently seen 08/05/2022 with residual left sided headaches worse with stress. She had stopped working to avoid triggers for the headaches. Current headache regimen: vit B2, coQ10 Interval History: She has a new puppy, Mauricio, who's keeping her busy and active. She feels cognitive better However, the headache persists and can be severe enough to send her to bed. She currently has a low level headache. She would like to try a medicine for the headache OUTPATIENT MEDICATIONS Current Outpatient Medications on File Prior to Visit Medication Sig levothyroxine (SYNTHROID) 88 mcg tablet Take 88 mcg by mouth once daily. aspirin, enteric coated (ECOTRIN LOW STRENGTH) 81 mg EC tablet Take 1 tablet by mouth once daily. Arm Brace (YOSEF ELBOW BRACE) misc 1 Each once daily. losartan 25 mg tablet Take 1 tablet by mouth once daily. simvastatin (ZOCOR) 40 mg tablet Take 1 tablet by mouth daily at bedtime. clopidogrel (PLAVIX) 75 mg tablet Take 1 tablet by mouth once daily. (Patient not taking: Reported on 01/17/2023) No current facility-administered medications on file prior to visit. MEDICAL HISTORY PAST MEDICAL HISTORY Diagnosis Date CAD (coronary artery disease) Constipation Hemorrhoids PAD (peripheral artery disease) (HCC) SURGICAL HISTORY PAST SURGICAL HISTORY Procedure Laterality Date CARPAL TUNNEL 01/08/13 Lt CARPAL TUNNEL 03/11 Rt COLONOSCOPY FLX DX W/COLLJ SPEC WHEN PFRMD 08/31/09 Normal Colonoscopy HEMORRHOIDECTOMY INT AND XTRNL 2/> COLUMN/JEREMIAH 09/01/09 3 quadrant PAST SURGICAL HISTORY OF stents placed in bilateral legs and abdomen TONSILLECTOMY PRIMARY/SECONDARY Tonsillectomy SOCIAL HISTORY Social History Tobacco Use Smoking status: Former Packs/day: 1.00 Years: 20.00 Pack years: 20.00 Types: Cigarettes Substance Use Topics Alcohol use: Yes Comment: rare Drug use: No FAMILY HISTORY No family history on file. ALLERGIES ALLERGIES Allergen Reactions Fiberglass Hives Bacitracin Rash Latex Swelling Penicillins Itching REVIEW OF SYSTEMS: No fevers, chills No chest pain No SOB No constipation, diarrhea Some numbness in hands in the morning No interval falls or head trauma PHYSICAL EXAM: BP 159/75 (BP Site: Left Arm, BP Position: Sitting, BP Cuff Size: Regular Adult) Pulse (!) 54 Ht 157.5 cm (5' 2 ) Wt 71.5 kg (157 lb 9.6 oz) LMP 09/01/2009 SpO2 99% BMI 28.83 kg/m? General appearance: Well appearing, alert Head: tender to palpation left occipital Neurological exam: Mental Status: Alert, oriented to person, place and time and Follows commands. Able to recall 2/3 words, remembered missing word with category cue Cranial Nerves: PERRL, visual lockhart intact to confrontation, extraocular movements intact, facial sensation intact, face symmetric, no facial droop or ptosis, hearing intact to finger rub bilaterally, no dysarthria, palate elevate symmetrically, tongue protrudes midline, and shoulder shrug intact and symmetric. Motor: Right Upper: Left Upper: Deltoid: 5 Deltoid: 5 Triceps: 5 Triceps: 5 Biceps: 5 Biceps: 5 Paper Rewinder: 5 Paper Rewinder: 5 Right Lower: Left Lower: Iliopsoas: 5 Iliopsoas: 5 Knee flexor: 5 Knee flexor: 5 Knee extensor: 5 Knee extensor: 5 Dorsiflexion: 5 Dorsiflexion: 5 Motor Tone: Right Upper: Normal tone Left Upper: Normal tone Right Lower: Normal tone Left Lower: Normal tone Reflexes: 2/4 biceps, brachioradialis, patellars Sensation: intact BUE to touch, temperature, vibration, proprioception Coordination: Finger-to- nose-finger intact bilaterally and [id number] intact bilaterally. Gait: normal-based. Normal tiptoe, heel, tandem gait Romberg: neg ASSESSMENT: 62 year old female with a history of HTN, HLD, PAD who presents with post concussive syndrome after November 2021 head trauma without LOC at work . She has residual post concussive headache that has persisted. Suspect some direct occipital nerve injury given location PLAN: - updated CBC, CMP - gabapentin for headaches, uptitrate as needed/tolerated - f/u 3mo I spent a total of 20 minutes on the date of the service which included preparing to see the patient, [id number] patient care, completing clinical doc (more content not included)... [facility] 01-17-2023 Instructions Joey Chavez MD - 01/17/2023 10:23 AM EDT We're going to try a medicine called gabapentin for the persisting headaches. This medicine basically calms down the nerves. Because it affects all the nerves, it can make you sleepy and dizzy. We're going to start at a bedtime dose and gradually increase as needed. If it's not a good fit, let me know and we can always switch documented in this encounter [facility] 01-17-2023 History of Presen t illness Narrative Images from the original note were not included. General Neurology Outpatient Clinic - f/u visit Date: January 17, 2023 Patient Name: Kirsten Bowman Referring physician: No referring provider defined for this encounter. Primary physician: To use this Smartlink, specify the provider ID whose address you want to display, e.g., .PROVADDR[1 (where 1 is the provider ID). Reason for Evaluation: Headaches f/u Initially seen 05/06/2022 regarding residual concussive symptoms, primarily headache and some mild cognitive changes, after November 2021 head trauma at work. MOCA normalized 05/31/2022. Most recently seen 08/05/2022 with residual left sided headaches worse with stress. She had stopped working to avoid triggers for the headaches. Current headache regimen: vit B2, coQ10 Interval History: She has a new puppy, Martínez, who's keeping her busy and active. She feels cognitive better However, the headache persists and can be severe enough to send her to bed. She currently has a low level headache. She would like to try a medicine for the headache OUTPATIENT MEDICATIONS Current Outpatient Medications on File Prior to Visit Medication Sig levothyroxine (SYNTHROID) 88 mcg tablet Take 88 mcg by mouth once daily. aspirin, enteric coated (ECOTRIN LOW STRENGTH) 81 mg EC tablet Take 1 tablet by mouth once daily. Arm Brace (YOSEF ELBOW BRACE) misc 1 Each once daily. losartan 25 mg tablet Take 1 tablet by mouth once daily. simvastatin (ZOCOR) 40 mg tablet Take 1 tablet by mouth daily at bedtime. clopidogrel (PLAVIX) 75 mg tablet Take 1 tablet by mouth once daily. (Patient not taking: Reported on 01/17/2023) No current facility-administered medications on file prior to visit. MEDICAL HISTORY PAST MEDICAL HISTORY Diagnosis Date CAD (coronary artery disease) Constipation Hemorrhoids PAD (peripheral artery disease) (HCC) SURGICAL HISTORY PAST SURGICAL HISTORY Procedure Laterality Date CARPAL TUNNEL 01/08/13 Lt CARPAL TUNNEL 03/11 Rt COLONOSCOPY FLX DX W/COLLJ SPEC WHEN PFRMD 08/31/09 Normal Colonoscopy HEMORRHOIDECTOMY INT & XTRNL 2/> COLUMN/JEREMIAH 09/01/09 3 quadrant PAST SURGICAL HISTORY OF stents placed in bilateral legs and abdomen TONSILLECTOMY PRIMARY/SECONDARY <AGE 12 Tonsillectomy SOCIAL HISTORY Social History Tobacco Use Smoking status: Former Packs/day: 1.00 Years: 20.00 Pack years: 20.00 Types: Cigarettes Substance Use Topics Alcohol use: Yes Comment: rare Drug use: No FAMILY HISTORY No family history on file. ALLERGIES ALLERGIES Allergen Reactions Fiberglass Hives Bacitracin Rash Latex Swelling Penicillins Itching REVIEW OF SYSTEMS: No fevers, chills No chest pain No SOB No constipation, diarrhea Some numbness in hands in the morning No interval falls or head trauma PHYSICAL EXAM: BP 159/75 (BP Site: Left Arm, BP Position: Sitting, BP Cuff Size: Regular Adult) Pulse (!) 54 Ht 157.5 cm (5' 2 ) Wt 71.5 kg (157 lb 9.6 oz) LMP 09/01/2009 SpO2 99% BMI 28.83 kg/m General appearance: Well appearing, alert Head: tender to palpation left occipital Neurological exam: Mental Status: Alert, oriented to person, place and time and Follows commands. Able to recall 2/3 words, remembered missing word with category cue Cranial Nerves: PERRL, visual lockhart intact to confrontation, extraocular movements intact, facial sensation intact, face symmetric, no facial droop or ptosis, hearing intact to finger rub bilaterally, no dysarthria, palate elevate symmetrically, tongue protrudes midline, and shoulder shrug intact and symmetric. Motor: Right Upper: Left Upper: Deltoid: 5 Deltoid: 5 Triceps: 5 Triceps: 5 Biceps: 5 Biceps: 5 Paper Rewinder: 5 Paper Rewinder: 5 Right Lower: Left Lower: Iliopsoas: 5 Iliopsoas: 5 Knee flexor: 5 Knee flexor: 5 Knee extensor: 5 Knee extensor: 5 Dorsiflexion: 5 Dorsiflexion: 5 Motor Tone: Right Upper: Normal tone Left Upper: Normal tone Right Lower: Normal tone Left Lower: Normal tone Reflexes: 2/4 biceps, brachioradialis, patellars Sensation: intact BUE to touch, temperature, vibration, proprioception Coordination: Finger-to- nose-finger intact bilaterally and Cogf-lh-qvqm intact bilaterally. Gait: normal-based. Normal tiptoe, heel, tandem gait Romberg: neg ASSESSMENT: 62 year old female with a history of HTN, HLD, PAD who presents with post concussive syndrome after November 2021 head trauma without LOC at work . She has residual post concussive headache that has persisted. Suspect some direct occipital nerve injury given location PLAN: - updated CBC, CMP - gabapentin for headaches, uptitrate as needed/tolerated - f/u 3mo I spent a total of 20 minutes on the date of the service which included preparing to see the patient, [id number]-[id number] patient care, completing clinical documentation, obtaining and/or reviewing separately obtained history, performing a medically appropriate examination, counseling and educating the patient/family/caregiver, and ordering medications, tests, or procedures. Joey Chavez MD Staff, General Neurology Pager: [phone] CC: Referring Physician: No referring provider defined for this encounter. PCP: To use this Smartlink, specify the provider ID whose address you want to display, e.g., .PROVADDR[1 (where 1 is the provider ID). documented in this encounter [facility] 08-05-2022 Note HNO ID: [id number] Author: Joey Chavez MD Service: ? Author Type: Physician Type: Progress Notes Filed: 08/05/2022 4:16 PM Note Text: General Neurology Outpatient Clinic - f/u visit Date: August 05, 2022 Patient Name: Kirsten Bowman Referring physician: No referring provider defined for this encounter. Primary physician: To use this Smartlink, specify the provider ID whose address you want to display, e.g., .PROVADDR[1 (where 1 is the provider ID). Reason for Evaluation: concussion f/u Previously seen 05/06/2022 regarding residual concussive symptoms, primarily headache and some mild cognitive changes, after November 2021 head trauma at work. Most recently seen 05/31/2022 for follow-up. Continued to improve spontaneously. Interval History: Stopped working to avoid triggers for headaches Still has left sided aching, dull headaches related to stress. Has family stressors. Does feel overall better though. Able to drive more. Was able to attend her grand-daughter's game without issue. Planning to drive to [place] to visit her son for a few days Did in interim have a mild head trauma to right side when a mop fell on her. No bruising, knot, or residual symptoms from that Her thyroid meds are being adjusted. Having weight pearl OUTPATIENT MEDICATIONS Current Outpatient Medications on File Prior to Visit Medication Sig aspirin, enteric coated (ECOTRIN LOW STRENGTH) 81 mg EC tablet Take 1 tablet by mouth once daily. Arm Brace (YOSEF ELBOW BRACE) misc 1 Each once daily. losartan 25 mg tablet Take 1 tablet by mouth once daily. simvastatin (ZOCOR) 40 mg tablet Take 1 tablet by mouth daily at bedtime. clopidogrel (PLAVIX) 75 mg tablet Take 1 tablet by mouth once daily. (Patient not taking: Reported on 05/06/2022) No current facility-administered medications on file prior to visit. MEDICAL HISTORY PAST MEDICAL HISTORY Diagnosis Date CAD (coronary artery disease) Constipation Hemorrhoids PAD (peripheral artery disease) (HCC) SURGICAL HISTORY PAST SURGICAL HISTORY Procedure Laterality Date CARPAL TUNNEL 01/08/13 Lt CARPAL TUNNEL 03/11 Rt COLONOSCOPY FLX DX W/COLLJ SPEC WHEN PFRMD 08/31/09 Normal Colonoscopy HEMORRHOIDECTOMY INT AND XTRNL 2/> COLUMN/JEREMIAH 09/01/09 3 quadrant PAST SURGICAL HISTORY OF stents placed in bilateral legs and abdomen TONSILLECTOMY PRIMARY/SECONDARY Tonsillectomy SOCIAL HISTORY Social History Tobacco Use Smoking status: Former Packs/day: 1.00 Years: 20.00 Pack years: 20.00 Types: Cigarettes Substance Use Topics Alcohol use: Yes Comment: rare Drug use: No FAMILY HISTORY No family history on file. ALLERGIES ALLERGIES Allergen Reactions Fiberglass Hives Bacitracin Rash Latex Swelling Penicillins Itching REVIEW OF SYSTEMS: No fevers, chills No chest pain No SOB No falls +headache, see HPI PHYSICAL EXAM: BP 169/89 (BP Site: Left Arm, BP Position: Sitting, BP Cuff Size: Small Adult) Pulse 72 Resp 16 Ht 157.5 cm (5' 2 ) Wt 70.3 kg (155 lb) LMP 09/01/2009 SpO2 97% BMI 28.35 kg/m? General appearance: Well appearing, alert, in no acute distress Head: Normocephalic, atraumatic. nontender Neurological exam: Mental Status: oriented to person, place, time. Followed commands. Able to recall 3/3 words Cranial Nerves: PERRL, visual lockhart intact to confrontation, extraocular movements intact, facial sensation intact, face symmetric, no facial droop or ptosis, hearing intact to finger rub bilaterally, no dysarthria, palate elevate symmetrically, tongue protrudes midline, and shoulder shrug intact and symmetric. Motor: Right Upper: Left Upper: Deltoid: 5 Deltoid: 5 Triceps: 5 Triceps: 5 Biceps: 5 Biceps: 5 Paper Rewinder: 5 Paper Rewinder: 5 Right Lower: Left Lower: Iliopsoas: 5 Iliopsoas: 5 Knee flexor: 5 Knee flexor: 5 Knee extensor: 5 Knee extensor: 5 Dorsiflexion: 5 Dorsiflexion: 5 Motor Tone: Right Upper: Normal tone Left Upper: Normal tone Right Lower: Normal tone Left Lower: Normal tone Reflexes: 2/4 biceps, brachioradialis, patellars Sensation: intact BUE to touch, temperature, vibration, proprioception Coordination: Finger-to- nose-finger intact bilaterally and Ethf-ox-pyky intact bilaterally. Gait: normal-based. Normal tiptoe, heel gait. Mildly unsteady tandem but independently performed Romberg: neg ASSESSMENT: The pt is a 61 year old female with a history of HTN, HLD, PAD who presents with post concussive syndrome after November 2021 head trauma without LOC at work. Has headaches helped by supplements, triggered by stress. Discussed options to help with stress management, patient opted to try it on her own. Discussed start medicine for the headaches, patient deferred at present time PLAN: - ok to drive to [place] to visit her son as long as she takes regular breaks - f/u 6mo I spent a total of 20 minutes on the date of the service which included prepar (more content not included)... [facility] 08-05-2022 History of Presen t illness Narrative Images from the original note were not included. General Neurology Outpatient Clinic - f/u visit Date: August 05, 2022 Patient Name: Kirsten Bowman Referring physician: No referring provider defined for this encounter. Primary physician: To use this Smartlink, specify the provider ID whose address you want to display, e.g., .PROVADDR[1 (where 1 is the provider ID). Reason for Evaluation: concussion f/u Previously seen 05/06/2022 regarding residual concussive symptoms, primarily headache and some mild cognitive changes, after November 2021 head trauma at work. Most recently seen 05/31/2022 for follow-up. Continued to improve spontaneously. Interval History: Stopped working to avoid triggers for headaches Still has left sided aching, dull headaches related to stress. Has family stressors. Does feel overall better though. Able to drive more. Was able to attend her grand-daughter's game without issue. Planning to drive to [place] to visit her son for a few days Did in interim have a mild head trauma to right side when a mop fell on her. No bruising, knot, or residual symptoms from that Her thyroid meds are being adjusted. Having weight pearl OUTPATIENT MEDICATIONS Current Outpatient Medications on File Prior to Visit Medication Sig aspirin, enteric coated (ECOTRIN LOW STRENGTH) 81 mg EC tablet Take 1 tablet by mouth once daily. Arm Brace (YOSEF ELBOW BRACE) misc 1 Each once daily. losartan 25 mg tablet Take 1 tablet by mouth once daily. simvastatin (ZOCOR) 40 mg tablet Take 1 tablet by mouth daily at bedtime. clopidogrel (PLAVIX) 75 mg tablet Take 1 tablet by mouth once daily. (Patient not taking: Reported on 05/06/2022) No current facility-administered medications on file prior to visit. MEDICAL HISTORY PAST MEDICAL HISTORY Diagnosis Date CAD (coronary artery disease) Constipation Hemorrhoids PAD (peripheral artery disease) (HCC) SURGICAL HISTORY PAST SURGICAL HISTORY Procedure Laterality Date CARPAL TUNNEL 01/08/13 Lt CARPAL TUNNEL 03/11 Rt COLONOSCOPY FLX DX W/COLLJ SPEC WHEN PFRMD 08/31/09 Normal Colonoscopy HEMORRHOIDECTOMY INT & XTRNL 2/> COLUMN/JEREMIAH 09/01/09 3 quadrant PAST SURGICAL HISTORY OF stents placed in bilateral legs and abdomen TONSILLECTOMY PRIMARY/SECONDARY <AGE 12 Tonsillectomy SOCIAL HISTORY Social History Tobacco Use Smoking status: Former Packs/day: 1.00 Years: 20.00 Pack years: 20.00 Types: Cigarettes Substance Use Topics Alcohol use: Yes Comment: rare Drug use: No FAMILY HISTORY No family history on file. ALLERGIES ALLERGIES Allergen Reactions Fiberglass Hives Bacitracin Rash Latex Swelling Penicillins Itching REVIEW OF SYSTEMS: No fevers, chills No chest pain No SOB No falls +headache, see HPI PHYSICAL EXAM: BP 169/89 (BP Site: Left Arm, BP Position: Sitting, BP Cuff Size: Small Adult) Pulse 72 Resp 16 Ht 157.5 cm (5' 2 ) Wt 70.3 kg (155 lb) LMP 09/01/2009 SpO2 97% BMI 28.35 kg/m General appearance: Well appearing, alert, in no acute distress Head: Normocephalic, atraumatic. nontender Neurological exam: Mental Status: oriented to person, place, time. Followed commands. Able to recall 3/3 words Cranial Nerves: PERRL, visual lockhart intact to confrontation, extraocular movements intact, facial sensation intact, face symmetric, no facial droop or ptosis, hearing intact to finger rub bilaterally, no dysarthria, palate elevate symmetrically, tongue protrudes midline, and shoulder shrug intact and symmetric. Motor: Right Upper: Left Upper: Deltoid: 5 Deltoid: 5 Triceps: 5 Triceps: 5 Biceps: 5 Biceps: 5 Paper Rewinder: 5 Paper Rewinder: 5 Right Lower: Left Lower: Iliopsoas: 5 Iliopsoas: 5 Knee flexor: 5 Knee flexor: 5 Knee extensor: 5 Knee extensor: 5 Dorsiflexion: 5 Dorsiflexion: 5 Motor Tone: Right Upper: Normal tone Left Upper: Normal tone Right Lower: Normal tone Left Lower: Normal tone Reflexes: 2/4 biceps, brachioradialis, patellars Sensation: intact BUE to touch, temperature, vibration, proprioception Coordination: Finger-to- nose-finger intact bilaterally and Ghia-cu-evaq intact bilaterally. Gait: normal-based. Normal tiptoe, heel gait. Mildly unsteady tandem but independently performed Romberg: neg ASSESSMENT: The pt is a 61 year old female with a history of HTN, HLD, PAD who presents with post concussive syndrome after November 2021 head trauma without LOC at work. Has headaches helped by supplements, triggered by stress. Discussed options to help with stress management, patient opted to try it on her own. Discussed start medicine for the headaches, patient deferred at present time PLAN: - ok to drive to [place] to visit her son as long as she takes regular breaks - f/u 6mo I spent a total of 20 minutes on the date of the service which included preparing to see the patient, [id number] patient care, completing clinical documentation, obtaining and/or reviewing separately obtained history, performing a medically appropriate examination, and counseling and educating the patient/family/caregiver. Joey Chavez MD Staff, General Neurology Pager: [phone] CC: Referring Physician: No referring provider defined for this encounter. PCP: To use this Smartlink, specify the provider ID whose address you want to display, e.g., .PROVADDR[1 (where 1 is the provider ID). documented in this encounter [facility] 05-31-2022 Note HNO ID: [id number] Author: Joey Chavez MD Service: ? Author Type: Physician Type: Progress Notes Filed: 06/03/2022 7:39 AM Note Text: General Neurology Outpatient Clinic - f/u visit Date: May 31, 2022 Patient Name: Kirsten Bowman Referring physician: No referring provider defined for this encounter. Primary physician: To use this Smartlink, specify the provider ID whose address you want to display, e.g., .PROVADDR[1 (where 1 is the provider ID). Reason for Evaluation: concussion f/u Previously seen 05/06/2022 regarding post concussive syndrome after November 2021 concussion. Particularly with headache and brain fog. MOCA 25/30. Plan for vitamins (vit B2, coenzyme Q10) to help with headaches. Interval History: Has been using vitamin B complex since she couldn't find the vit B2 and coenzyme Q10. Doing overall better, able to do more at work, even multi-task. Still has occasional headaches with over-exertion but has been mindful to rest in quiet environment after work. Still has left sided ear discomfort but now more dull and lower in intensity. No interval new symptoms or new head trauma OUTPATIENT MEDICATIONS Current Outpatient Medications on File Prior to Visit Medication Sig aspirin, enteric coated (ECOTRIN LOW STRENGTH) 81 mg EC tablet Take 1 tablet by mouth once daily. Arm Brace (YOSEF ELBOW BRACE) misc 1 Each once daily. losartan 25 mg tablet Take 1 tablet by mouth once daily. simvastatin (ZOCOR) 40 mg tablet Take 1 tablet by mouth daily at bedtime. clopidogrel (PLAVIX) 75 mg tablet Take 1 tablet by mouth once daily. (Patient not taking: Reported on 05/06/2022) No current facility-administered medications on file prior to visit. MEDICAL HISTORY PAST MEDICAL HISTORY Diagnosis Date CAD (coronary artery disease) Constipation Hemorrhoids PAD (peripheral artery disease) (HCC) SURGICAL HISTORY PAST SURGICAL HISTORY Procedure Laterality Date CARPAL TUNNEL 01/08/13 Lt CARPAL TUNNEL 03/11 Rt COLONOSCOPY FLX DX W/COLLJ SPEC WHEN PFRMD 08/31/09 Normal Colonoscopy HEMORRHOIDECTOMY INT AND XTRNL 2/> COLUMN/JEREMIAH 09/01/09 3 quadrant PAST SURGICAL HISTORY OF stents placed in bilateral legs and abdomen TONSILLECTOMY PRIMARY/SECONDARY Tonsillectomy SOCIAL HISTORY Social History Tobacco Use Smoking status: Former Packs/day: 1.00 Years: 20.00 Pack years: 20.00 Types: Cigarettes Substance Use Topics Alcohol use: Yes Comment: rare Drug use: No FAMILY HISTORY No family history on file. ALLERGIES ALLERGIES Allergen Reactions Fiberglass Hives Bacitracin Rash Latex Swelling Penicillins Itching REVIEW OF SYSTEMS: No fevers, chills No chest pain No SOB No cough No congestion No falls No interval head trauma PHYSICAL EXAM: BP 131/79 Pulse 72 Wt 68.7 kg (151 lb 8 oz) LMP 09/01/2009 SpO2 98% BMI 27.27 kg/m? General appearance: Well appearing, alert, in no acute distress Head: Normocephalic, atraumatic. Neurological exam: Mental Status: MOCA: 30/30 (29 +1 for 12 years education) Visuospastial/executive: / Namin/3 Attention: 09/03 Language: 3/3 (12 words) Abstraction: 2/ Delayed recall: 4/5 (recalled last one with choices) Orientation: 09/03 18-25 =mild cognitive impairment, 10-17 = moderate cognitive impairment, <10 = severe cognitive impairment Cranial Nerves: PERRL, visual lockhart intact to confrontation, extraocular movements intact, facial sensation intact, face symmetric, no facial droop or ptosis, hearing intact to finger rub bilaterally, no dysarthria, and shoulder shrug intact and symmetric. Motor: Right Upper: Left Upper: Deltoid: 5 Deltoid: 5 Triceps: 5 Triceps: 5 Biceps: 5 Biceps: 5 Paper Rewinder: 5 Paper Rewinder: 5 Finger abduction: 5 Finger abduction: 5 Finger adduction: 5 Finger adduction: 5 Right Lower: Left Lower: Iliopsoas: 5 Iliopsoas: 5 Knee flexor: 5 Knee flexor: 5 Knee extensor: 5 Knee extensor: 5 Dorsiflexion: 5 Dorsiflexion: 5 Plantarflexion: 5 Plantarflexion: 5 Motor Tone: Right Upper: Normal tone Left Upper: Normal tone Right Lower: Normal tone Left Lower: Normal tone Sensation: intact BUE to touch, temperature, vibration, proprioception Coordination: Finger-to- nose-finger intact bilaterally and Gwvi-pj-kfke intact bilaterally. Gait: normal-based. Normal tiptoe, heel, tandem gait Romberg: neg ASSESSMENT: 61 year old female with a history of HTN, HLD, PAD who presents for follow-up of post concussive syndrome, particularly post concussive headache and some mild linger cognitive symptoms after fall with mild head trauma without LOC in November 2021. Doing symptomatically better though not 100% back to baseline. MOCA shows improvement in frontal and delayed recall function. PLAN: - continue resting as needed - continue supplements - f/u prn I spent a total of 30 minutes on the date of the service which included preparing to see the (more content not included)... [facility] 05-17-2022 Miscellaneous Notes Call to patient. No answer. Detailed voicemail left stating paperwork can be picked up and Dr. Chavez advised to have PCP fill these forms out. 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 Form has been forwarded to: Provider's mailbox. Provider name: Dr. Hima Krueger documented in this encounter [facility] 05-06-2022 Note HNO ID: [id number] Author: Joey Chavez MD Service: ? Author Type: Physician Type: Progress Notes Filed: 05/06/2022 9:53 AM Note Text: General Neurology Outpatient Clinic - new patient evaluation Date: May 06, 2022 Patient Name: Kirsten Bowman Referring physician: DAVIS Primary physician: To use this Smartlink, specify the provider ID whose address you want to display, e.g., .PROVADDR[1 (where 1 is the provider ID). Reason for Evaluation: Headaches HP: The pt is a 61yo Right handed female with hx of - HTN - HLD - PAD Presenting for evaluation of headaches Per EMR, had gone to [facility] ED 04/12/2022 for chronic headache since a fall November 2021 at work. She's had daily headaches since that time. CTH a few weeks afterwards was neg for acute process. Pain left sided, pressure. Was referred to neurology but appointment wasn't until June. Per patient, she has no prior history of concussions, head trauma, or headaches until the even in November. 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 In November, she was on a stool reaching for a comforter when she fell. She had been in a hurry and just lost her balance on the stool. No syncopal symptoms, no LOC, though she was shaken and stunned. She hit the left side of her head against a metal shelf. She developed brain fog and headaches. The brain fog has dramatically improved after the first 3 weeks, though she still feels not as cognitively sharp. The headaches, however, have persisted, though has improved. Initially was frontal, bilateral retro-orbital, now more concentrated on the left. She does feel that she is still gradually improving but thought she'd get checked out to be sure. She has been reading about concussions and is aware it takes a while to recover and that each person's recovery is different. She has been adjusting work load as tolerated. Her work is understanding and she is able to set her own schedule. She uses tylenol rarely and only if she really needs it since she doesn't like to take too many medicines She quit smoking and drinking 10 years ago when she had to get stents for her PAD Description of headaches: left sided, where she hit her head, can be behind the left eye and within the left ear. Pressure sensation Associated with: no tinnitus or hearing changes. Initially had some photophobia and imbalance but that mostly resolved after the first week. No nausea, emesis, dizziness Aura: none Time to peak pain: n/a Duration: constant Frequency: constant, fluctuates in intensity Triggers: n/a Exacerbating factors: too much sensory input, increased stress Alleviating factors: resting, open space, quiet Menstrual pattern: n/a OUTPATIENT MEDICATIONS Current Outpatient Medications on File Prior to Visit Medication Sig aspirin, enteric coated (ECOTRIN LOW STRENGTH) 81 mg EC tablet Take 1 tablet by mouth once daily. Arm Brace (YOSEF ELBOW BRACE) misc 1 Each once daily. losartan 25 mg tablet Take 1 tablet by mouth once daily. simvastatin (ZOCOR) 40 mg tablet Take 1 tablet by mouth daily at bedtime. clopidogrel (PLAVIX) 75 mg tablet Take 1 tablet by mouth once daily. (Patient not taking: Reported on 05/06/2022) No current facility-administered medications on file prior to visit. MEDICAL HISTORY PAST MEDICAL HISTORY Diagnosis Date CAD (coronary artery disease) Constipation Hemorrhoids PAD (peripheral artery disease) (HCC) SURGICAL HISTORY PAST SURGICAL HISTORY Procedure Laterality Date CARPAL TUNNEL 01/08/13 Lt CARPAL TUNNEL 03/11 Rt COLONOSCOPY FLX DX W/COLLJ SPEC WHEN PFRMD 08/31/09 Normal Colonoscopy HEMORRHOIDECTOMY INT AND XTRNL 2/> COLUMN/JEREMIAH 09/01/09 3 quadrant PAST SURGICAL HISTORY OF stents placed in bilateral legs and abdomen TONSILLECTOMY PRIMARY/SECONDARY Tonsillectomy SOCIAL HISTORY Social History Tobacco Use Smoking status: Former Packs/day: 1.00 Years: 20.00 Pack years: 20.00 Types: Cigarettes Substance Use Topics Alcohol use: Yes Comment: rare Drug use: No FAMILY HISTORY No family history on file. ALLERGIES ALLERGIES Allergen Reactions Fiberglass Hives Bacitracin Rash Latex Swelling Penicillins Itching REVIEW OF SYSTEMS: No fevers, chills No chest pain, palpitations No SOB No abdominal pain No constipation, diarrhea PHYSICAL EXAM: BP 173/96 (BP Site: Right Arm, BP Position: Sitting, BP Cuff Size: Regular Adult) Pulse 74 Resp 16 Ht 158.8 cm (5' 2.5 ) Wt 69.4 kg (153 lb) LMP 09/01/2009 SpO2 97% BMI 27.54 kg/m? General appearance: Well appearing, alert, in no acute distress Head: Normocephalic, atraumatic. Nontender Neck: nontender, full ROM Ears: external canals clear, nonbulging tympanic membrane Neurological exam: Mental Status: Alert, oriented to person, place and time and Follows commands. MOCA: 25/30 (24 + 1 for 12th grade education) Visuospast (more content not included)... [facility] 05-06-2022 Instructions Joey Chavez MD - 05/06/2022 9:39 AM EST You have had a concussion. It takes on average 6-8 weeks for patients to feel better. Everyone does recover at their own pace. Essentially, your brain had a little earthquake and is taking time to rebuild. I'm so glad that you listen to your body's limits and stop when your symptoms feel worse. That's one of the best things to do for your concussion. Good sleep, good hydration, good diet, and regular exercise help with the recovery. Some patient try vitamin B2 400mg daily and/or coenzyme Q10 200mg twice a day to help with the headaches. These vitamins help with the energy in the body and the brain. You brain does need more energy right now. These will make your pee super yellow, that's just the body passing vitamin it does not use documented in this encounter [facility] 05-06-2022 History of Presen t illness Narrative Images from the original note were not included. General Neurology Outpatient Clinic - new patient evaluation Date: May 06, 2022 Patient Name: Kirsten Bowman Referring physician: SELF Primary physician: To use this Smartlink, specify the provider ID whose address you want to display, e.g., .[employer]ADDR[1 (where 1 is the provider ID). Reason for Evaluation: Headaches HP: The pt is a 61yo Right handed female with hx of - HTN - HLD - PAD Presenting for evaluation of headaches Per EMR, had gone to [facility] ED 04/12/2022 for chronic headache since a fall November 2021 at work. She's had daily headaches since that time. CTH a few weeks afterwards was neg for acute process. Pain left sided, pressure. Was referred to neurology but appointment wasn't until June. Per patient, she has no prior history of concussions, head trauma, or headaches until the even in November. 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 In November, she was on a stool reaching for a comforter when she fell. She had been in a hurry and just lost her balance on the stool. No syncopal symptoms, no LOC, though she was shaken and stunned. She hit the left side of her head against a metal shelf. She developed brain fog and headaches. The brain fog has dramatically improved after the first 3 weeks, though she still feels not as cognitively sharp. The headaches, however, have persisted, though has improved. Initially was frontal, bilateral retro-orbital, now more concentrated on the left. She does feel that she is still gradually improving but thought she'd get checked out to be sure. She has been reading about concussions and is aware it takes a while to recover and that each person's recovery is different. She has been adjusting work load as tolerated. Her work is understanding and she is able to set her own schedule. She uses tylenol rarely and only if she really needs it since she doesn't like to take too many medicines She quit smoking and drinking 10 years ago when she had to get stents for her PAD Description of headaches: left sided, where she hit her head, can be behind the left eye and within the left ear. Pressure sensation Associated with: no tinnitus or hearing changes. Initially had some photophobia and imbalance but that mostly resolved after the first week. No nausea, emesis, dizziness Aura: none Time to peak pain: n/a Duration: constant Frequency: constant, fluctuates in intensity Triggers: n/a Exacerbating factors: too much sensory input, increased stress Alleviating factors: resting, open space, quiet Menstrual pattern: n/a OUTPATIENT MEDICATIONS Current Outpatient Medications on File Prior to Visit Medication Sig aspirin, enteric coated (ECOTRIN LOW STRENGTH) 81 mg EC tablet Take 1 tablet by mouth once daily. Arm Brace (YOSEF ELBOW BRACE) misc 1 Each once daily. losartan 25 mg tablet Take 1 tablet by mouth once daily. simvastatin (ZOCOR) 40 mg tablet Take 1 tablet by mouth daily at bedtime. clopidogrel (PLAVIX) 75 mg tablet Take 1 tablet by mouth once daily. (Patient not taking: Reported on 05/06/2022) No current facility-administered medications on file prior to visit. MEDICAL HISTORY PAST MEDICAL HISTORY Diagnosis Date CAD (coronary artery disease) Constipation Hemorrhoids PAD (peripheral artery disease) (HCC) SURGICAL HISTORY PAST SURGICAL HISTORY Procedure Laterality Date CARPAL TUNNEL 01/08/13 Lt CARPAL TUNNEL 03/11 Rt COLONOSCOPY FLX DX W/COLLJ SPEC WHEN PFRMD 08/31/09 Normal Colonoscopy HEMORRHOIDECTOMY INT & XTRNL / COLUMN/JEREMIAH 09/01/09 3 quadrant PAST SURGICAL HISTORY OF stents placed in bilateral legs and abdomen TONSILLECTOMY PRIMARY/SECONDARY <AGE 12 Tonsillectomy SOCIAL HISTORY Social History Tobacco Use Smoking status: Former Packs/day: 1.00 Years: 20.00 Pack years: 20.00 Types: Cigarettes Substance Use Topics Alcohol use: Yes Comment: rare Drug use: No FAMILY HISTORY No family history on file. ALLERGIES ALLERGIES Allergen Reactions Fiberglass Hives Bacitracin Rash Latex Swelling Penicillins Itching REVIEW OF SYSTEMS: No fevers, chills No chest pain, palpitations No SOB No abdominal pain No constipation, diarrhea PHYSICAL EXAM: BP 173/96 (BP Site: Right Arm, BP Position: Sitting, BP Cuff Size: Regular Adult) Pulse 74 Resp 16 Ht 158.8 cm (5' 2.5 ) Wt 69.4 kg (153 lb) LMP 09/01/2009 SpO2 97% BMI 27.54 kg/m General appearance: Well appearing, alert, in no acute distress Head: Normocephalic, atraumatic. Nontender Neck: nontender, full ROM Ears: external canals clear, nonbulging tympanic membrane Neurological exam: Mental Status: Alert, oriented to person, place and time and Follows commands. MOCA: 25/30 (24 + 1 for 12th grade education) Visuospastial/executive: 3/ (missed trail, connected numbers only, and cube drawing) Namin/3 Attention: 09/03 Language: 05/31 (18 words) Abstraction: 2/ Delayed recall: 04/04 (recalled 2 with category cue, 2 with choices) Orientation: 09/03 18-25 =mild cognitive impairment, 10-17 = moderate cognitive impairment, <10 = severe cognitive impairment Cranial Nerves: PERRL, visual lockhart intact to confrontation, extraocular movements intact, facial sensation intact, face symmetric, no facial droop or ptosis, hearing intact to finger rub bilaterally, no dysarthria, and shoulder shrug intact and symmetric. Motor: Right Upper: Left Upper: Deltoid: 5 Deltoid: 5 Triceps: 5 Triceps: 5 Biceps: 5 Biceps: 5 Paper Rewinder: 5 Paper Rewinder: 5 Finger abduction: 5 Finger abduction: 5 Finger adduction: 5 Finger adduction: 5 Right Lower: Left Lower: Iliopsoas: 5 Iliopsoas: 5 Knee flexor: 5 Knee flexor: 5 Knee extensor: 5 Knee extensor: 5 Dorsiflexion: 5 Dorsiflexion: 5 Plantarflexion: 5 Plantarflexion: 5 Motor Tone: Right Upper: Normal tone Left Upper: Normal tone Right Lower: Normal tone Left Lower: Normal tone Reflexes:2/4 biceps, brachioradialis, patlelars. Downgoing plantars. No ankle clonus Sensation: intact BUE and BLE to touch, temperature, vibration, proprioception Coordination: Finger-to- nose-finger intact bilaterally and [id number] intact bilaterally. Gait: normal-based. Normal tiptoe, heel, tandem gait Romberg: neg LABS/DATA: 01/10/2022 OSH TSH 1.34 IMAGIN01/17/2022 CT Brain wo (OSH, report only) BRAIN PARENCHYMA: No significant attenuation abnormality. No acute intra-axial hemorrhage. CSF SPACES: Cerebral ventricles, cortical sulci, and other extra-axial CSF spaces within normal limits in size for patient''s age. No midline shift or other significant mass effect. No acute extra-axial hemorrhage. OTHER: Intact calvarium. No significant air fluid levels in the paranasal sinuses or mastoid air cells. Unremarkable orbital contents. IMPRESSION: No acute intracranial process identified. ASSESSMENT: The pt is a 61 year old female with a history of HTN, HLD, PAD who presents with post concussive syndrome, particularly post concussive headache and some mild linger cognitive symptoms after fall with mild head trauma without LOC in November 2021. CTH NAP. Her neurological examination shows some deficits on visuospatial/executive and delayed recall on memory testing but is otherwise normal. Discussed pathophysiology and natural course of concussions. Patient is spontaneously gradually improving and has been taking care to listen to and respond appropriately to limits based on symptoms and effort. She would like to hold off on daily prescription medicine to help with headaches at this time given continued self-improvement. PLAN: - consider vit B2 and coenzyme Q10 supplements to help with headaches and brain recovery - continue regular hydration, good sleep, and regular diet to help with recovery - f/u 3mo to monitor I spent a total of 60 minutes on the date of the service which included preparing to see the patient, [id number] patient care, completing clinical documentation, obtaining and/or reviewing separately obtained history, performing a medically appropriate examination, counseling and educating the patient/family/caregiver, ordering medications, tests, or procedures, independently interpreting results (not separately reported), and communicating results to the patient/family/caregiver. Joey Chavez MD Staff, General Neurology Pager: [phone] CC: Referring Physician: SELF PCP: To use this Smartlink, specify the provider ID whose address you want to display, e.g., .[email or web address][1 (where 1 is the provider ID). documented [facility] this encounter [facility] Diagnosis Post-concussion headache- Primary Post-traumatic headache, unspecified Post concussion syndrome Postconcussion syndrome Stress headache Tension headache [facility] Diagnosis Post-concussion headache- Primary Post-traumatic headache, unspecified documented in this encounter [facility] Summary Purpose Family History No Family History Records FoundNo Family History Records Found Advance Directives No Advanced Directives Records FoundNo Advanced Directives Records Found Additional Source Comments Source Comments (unrecognize d section and content) In the event this informatio n is protected by the Federal Confidentiality of Alcohol and Drug Abuse Patient Records regulations: The Federal rules restrict any use of the information to criminally investigate or prosecute any alcohol or drug abuse patient.[facility] the event this information is protected by the Federal Confidentiality of Alcohol and Drug Abuse Patient Records regulations: The Federal rules restrict any use of the information to criminally investigate or prosecute any alcohol or drug abuse patient.[facility] the event this information is protected by the Federal Confidentiality of Alcohol and Drug Abuse Patient Records regulations: The Federal rules restrict any use of the information to criminally investigate or prosecute any alcohol or drug abuse patient.[facility] the event this information is protected by the Federal Confidentiality of Alcohol and Drug Abuse Patient Records regulations: The Federal rules restrict any use of the information to criminally investigate or prosecute any alcohol or drug abuse patient.[facility] Reason for Visit (unrecogniz ed section and content) Specialty Diagnoses / Procedures Referred By Contkiya t Referred To Contact NEUROLOGY Diagnoses Concussion Procedures REFERRAL TO [facility]ANCIAL COUNSELOR Self Neur [facility] [address] [address] Referral ID Status Reason Start Date Expiration Date V isits Requested Visits Authorized [id number] Outside PCP 04/24/2022 06/23/2022 1 1 Reason Comments Forms Worker's Comp Reason Comments Follow Up Reason Comments Post concussion headache INFORMATION SOURCE (unrecogn ized section and content) DATE CREATED AUTHOR AUTHOR'S ORGANIZ ATION 01/19/2023 [facility] FOR RECORDS PERTAINING TO PATIENTS WHO ARE OR HAVE BEEN ENROLLED IN A CHEMICAL DEPENDENCY/SUBSTANCEABUSE PROGRAM, SOME INFORMATION MAY BE OMITTED. This clinical summary was aggregated from multiple sources. Caution should be exercised in using it in the provision of clinical care. This summary normalizes information from multiple sources, and as a consequence, information in this document may materially change the coding, format and clinical context of patient data. In addition, data may be omitted in some cases. CLINICAL DECISIONS SHOULD BE BASED ON THE PRIMARY CLINICAL RECORDS. [facility]. provides no warranty or guarantee of the accuracy or completeness of information in this document.
== END | disposition home or self-care (01) ==
PROVIDERS: PCP Family Medicine Geriatric Medicine; Referring Provider Surgery Vascular Surgery; Visit Provider Surgery Vascular Surgery
DX: I70.213 Atherosclerosis of native arteries of extremities with intermittent claudication, bilateral legs (principal); I74.09 Other arterial embolism and thrombosis of abdominal aorta; I10 Essential (primary) hypertension; Z87.891 Personal history of nicotine dependence
CPT/HCPCS: 93922; 93978

== ENCOUNTER → 2023-07-30 | Outpatient (CLI) | payer OTHER, SELFPAY ==
[2023-07-30 17:43] LABS: Absolute Neutrophil Count 4.7 X10^3/uL (2.0-7.7); Basophil# 0.03 X10^3/uL; Basophil% 0.4 % (0-1); Eosinophil# 0.18 X10^3/uL; Eosinophils% 2.4 % (0-5); Hematocrit 39.2 % (37-47); Hemoglobin 12.6 g/dL (12.0-15.0); Lymphocyte % 28.8 % (19-41); Mean Corp Hgb Conc 32.1 g/dL (32-36); Mean Corpuscular Volume 93.3 fL (81-99); Mean Platelet Vol. 10.4 fl (6.2-12.0); Monocyte# 0.47 X10^3/uL; Monocyte% 6.2 % (0-10); NRBC Flagged by Analyzer 0 % (0-5); Neutrophil # 4.73 X10^3/uL (2.7-7.7); Neutrophil % 61.8 % (47-70); Platelet Count 264 K/mm3 (150-450); RBC Distribution Width CV 11.9 % (11.6-14.6); White Blood Count 7.6 K/mm3 (4.4-11.0)
[2023-07-30 18:08] LABS: ALB/GLOB Ratio 1.3 RATIO (0.9-2.4); AST(SGOT) 17 U/L (15-37); Alanine Aminotransfer ALT/SGPT 26 U/L (13-56); Albumin, Serum 3.9 g/dL (3.2-5.0); Alkaline Phosphatase 80 U/L (45-117); Anion Gap 5 (5-15); BUN 14 mg/dL (7-18); BUN/Creat Ratio 16.7 RATIO (10-20); Calcium,Total 8.7 mg/dL (8.5-10.1); Chloride 110 mmol/L (98-107); Cholesterol 141 mg/dL (200); Creatinine, Serum 0.84 mg/dL (0.55-1.02); EST Glomerular Filtration Rate 73 mL/min (>60); Est Glom Filt Rate - Afr Amer 88 mL/min (>60); Globulin 3.1 g/dL (2.2-4.2); Glucose 87 mg/dL (74-106); High Density Lipoprotein 73 mg/dL; Potassium 3.6 mmol/L (3.5-5.1); Sodium Level 140 mmol/L (136-145); Thyroid Stim Hormone (TSH) 9.88 uIU/mL (0.358-3.74); Triglycerides 89 mg/dL; Very Low Density Lipoprotein 18 mg/dL (5-40)
== END | disposition home or self-care (01) ==
LOC: POLAB3 16:17
PROVIDERS: PCP Family Medicine Geriatric Medicine; Visit Provider Family Medicine Geriatric Medicine
DX: I10 Essential (primary) hypertension (principal); E78.5 Hyperlipidemia, unspecified
CPT/HCPCS: 36415; 80053; 80061; 84443; 85025

== ENCOUNTER → 2024-08-02 | Outpatient (CLI) | payer OTHER, SELFPAY ==
[2024-08-02 18:17] LABS: Absolute Lymphocyte Count 2.06 X10^3/uL (0.83-4.51); Absolute Neutrophil Count 4.4 X10^3/uL (2.0-7.7); Basophil# 0.02 X10^3/uL; Basophil% 0.3 % (0-1); Eosinophil# 0.17 X10^3/uL; Eosinophils% 2.4 % (0-5); Hematocrit 39.3 % (37-47); Hemoglobin 13.1 g/dL (12.0-15.0); Lymphocyte # 2.06 X10^3/ul (0.83-4.51); Lymphocyte % 28.7 % (19-41); Mean Corp Hgb Conc 33.3 g/dL (32-36); Mean Corpuscular Hgb 30.5 pg (27.0-32.0); Mean Corpuscular Volume 91.6 fL (81-99); Mean Platelet Vol. 9.5 fl (6.2-12.0); Monocyte# 0.55 X10^3/uL; Monocyte% 7.7 % (0-10); NRBC Flagged by Analyzer 0 % (0-5); Neutrophil # 4.36 X10^3/uL (2.7-7.7); Neutrophil % 60.6 % (47-70); Platelet Count 238 K/mm3 (150-450); RBC Distribution Width CV 11.9 % (11.6-14.6); RBC Distribution Width SD 39.8 fl (35.1-43.9); Red Blood Count 4.29 M/mm3 (4.2-5.4); White Blood Count 7.2 K/mm3 (4.4-11.0)
[2024-08-02 18:45] LABS: ALB/GLOB Ratio 1.6 RATIO (0.9-2.4); AST(SGOT) 22 U/L (<=31); Alanine Aminotransfer ALT/SGPT 23 U/L (<=34); Albumin, Serum 4.4 g/dL (3.4-4.8); Alkaline Phosphatase 83 U/L (35-104); Anion Gap 10 (5-15); BUN 15 mg/dL (4-19); BUN/Creat Ratio 19.6 RATIO (10-20); Calcium,Total 9.3 mg/dL (7.6-11.0); Carbon Dioxide 23.6 mmol/L (21.0-32.0); Chloride 108 mmol/L (98-108); Cholesterol 156 mg/dL (<=200); Creatinine, Serum 0.74 mg/dL (0.70-1.20); EST Glomerular Filtration Rate 90 (>60); Globulin 2.7 g/dL (2.2-4.2); Glucose 85 mg/dL (70-99); High Density Lipoprotein 66 mg/dL; Low Density Lipoprotein Calc. 73 mg/dL; Potassium 3.8 mmol/L (3.3-5.1); Protein, Total 7.1 g/dL (5.9-8.4); Sodium Level 141 mmol/L (133-145); Total Bilirubin 0.47 mg/dL (0.00-1.30); Triglycerides 85 mg/dL; Very Low Density Lipoprotein 17 mg/dL (5-40); cholesterol:hdl ratio screen 2.35
== END | disposition home or self-care (01) ==
PROVIDERS: PCP Family Medicine Geriatric Medicine; Referring Provider Family Medicine Geriatric Medicine; Visit Provider Family Medicine Geriatric Medicine
DX: I10 Essential (primary) hypertension (principal); E78.5 Hyperlipidemia, unspecified
CPT/HCPCS: 36415; 80053; 80061; 84443; 85025